=== PATIENT | male | born 1945 | race Caucasian/White ===

== ENCOUNTER 2016-08-24 08:10 | Emergency (ER) | payer BC, OTHER ==
[~2016-08-24] VITALS: Ht 182.9 cm; Wt 98.4 kg
[~2016-08-24 08:10] MED LIST: ASPCH81X PO; ASPI400T11 PO; ATOR-24 PO; CHOL200027 PO; DOCU-94 PO; LEVO200T PO; MULT-506 PO; OMEGCAP2 PO; OMEP20CA9 PO; SUMA50TA15 PO; TRAM-10 PO
[2016-08-24 08:14] VITALS: TEMP 36.6; Ht 182.9 cm; Wt 98.4 kg
[2016-08-24] MEDS ORDERED: SODIUM CHLORIDE 0.9% 1000ML 1,000 ML IV STA (08:21)
[2016-08-24] MEDS ORDERED: SODIUM CHLORIDE 0.9% 1000ML 250 ML IV STA (08:21)
[2016-08-24] MEDS ORDERED: MoRPHine SULFATE 4 MG/ML 1 ML CARP\\VIAL IV STA ×2 (08:21→09:18)
[2016-08-24] MEDS ORDERED: ONDANSETRON INJ 2 MG/ML 2 ML VIAL IV STA (08:21)
--- NOTE | 2016-08-24 08:32 | EMERGENCY ROOM VISIT NOTE ---
History Report prepared by Gomez: Ania Garrett Under the Supervision of: Dr. Osman Kendall M.D. First contact with patient: 08:18 Chief Complaint: KIDNEY STONE Stated Complaint: KIDNEY STONE, LOWER LEFT BACK PAIN History of Present Illness The patient is a 71 year old male who presents to the Emergency Room with complaints of worsening left lower back pain that began about 8 days ago. He saw Dr. Samuels a week ago and mentioned his pain, but the patient thought it could be related to a muscular pain from exercising. His pain did not seem to improve , and in fact worsened, so he became suspicious of a kidney stone. The pain also moved from his left mid back to his left lower back. Yesterday, the pain worsened significantly. It is worse with movement. He has some improvement with certain position changes. He reports a day or 2 of hematuria in the past few weeks which cleared on its own. The patient has a history of a kidney stone 5-6 years ago. His current pain feels similar to the previous kidney stone. The patient has chronic back problems and received an injection by Dr. López this past April. His current pain does not feel similar to previous back issues. Denies shortness of breath, pain with breathing, abdominal pain, lower extremity numbness/weakness, or other complaints. He is not on a blood thinner. The patient does not have a history of an aneurysm. His father had an aortic aneurysm. Source of History: patient, spouse/significant other Onset: 8 days ago Position: back (left lower) Timing: worsening Modifying Factors (Worsening): movement Modifying Factors (Relieving): other (positional) Associated Symptoms: No SOB, No abdominal pain, No numbness, No weakness Review of Systems See HPI for pertinent positives & negatives. A total of 10 systems reviewed and were otherwise negative. Past Medical & Surgical Medical Problems: (1) Kidney stone Old medical records were reviewed. Nurse's notes were reviewed and I agree with. Family History FH: aortic aneurysm Social History Smoking Status: Never Smoker Drug Use: none Marital Status: Housing Status: lives with significant other Current/Historical Medications Scheduled Atorvastatin (Lipitor), 40 MG PO QPM Cholecalciferol (Vitamin D-3), 1 TAB PO QAM Docusate Sodium (Colace), 1 CAP PO HS Levothyroxine Sodium (Synthroid), 200 MCG PO QAM Multivitamin (Multivitamin), 1 TAB PO QAM [place]-3 Fatty Acids (Fish Oil), 1,000 MG PO DAILY AT LUNCH Scheduled PRN Aspirin-Caffeine (Anacin 400-32 mg), 1 TAB PO QAM PRN for Pain Omeprazole (Prilosec), 20 MG PO HS PRN for ACID REFLUX Sumatriptan Succinate (Imitrex), 50 MG PO PRN PRN for Migraine Tramadol (Ultram), 50 MG PO Q8H PRN for Headache Allergies Coded Allergies: No Known Allergies (Verified , 05/16/16) Physical Exam Vital Signs Date Time Temp Pulse Resp B/P Pulse Ox O2 Delivery O2 Flow Rate FiO2 08/24/16 12:12 66 18 162/86 97 Room Air 08/24/16 10:28 67 18 178/97 95 Room Air 08/24/16 09:17 57 18 185/95 97 Room Air 08/24/16 08:14 36.6 74 18 176/77 94 Room Air Physical Exam General: Mildly uncomfortable appearing older male complaining of left flank pain. Well developed well nourished in no acute distress, breathing comfortably on room air. Normal speech HEENT: Normal cephalic atraumatic. Pupils are equal round and reactive to light. Extraocular movements are intact. Oropharynx is pink with moist mucous membranes. No swelling of the mouth lips or tongue. Neck: Supple with a midline trachea. No meningeal signs or stiffness, no JVD or bruits. No Stridor. Chest: Clear to auscultation bilaterally. No wheezes or rhonchi. No increased work of breathing. Heart: regular rate and rhythm. Abdomen: Soft nontender, nondistended without rebound guarding or rigidity. Extremities: No cyanosis clubbing or edema. No calf tenderness or assymetry Spine/Back. Non tender to palpation. No CVA tenderness Skin: Good turgor without rashes. Neurologic exam: Cranial nerves two through 12 are intact. Motor and sensation are intact and symmetrical throughout. Medical Decision & Procedures ER Provider Diagnostic Interpretation: Radiology results as stated below per my review and radiologist interpretation: LUMBAR SPINE CT CT DOSE: HISTORY: Pain. Neuropathy. eval for spinal disease TECHNIQUE: Multiaxial CT images of the lumbar spine were performed and reformatted in the sagittal and coronal plane without the use of contrast. COMPARISON: None. FINDINGS: No fractures. No subluxation. Paraspinal soft tissues are unremarkable. Mild degenerative vertebral this changes throughout. No evidence for major component of spinal stenosis. Minimal degenerative changes of posterior facets. IMPRESSION: Minimal to mild degenerative change. No acute process. Electronically signed by: Parvez Marks M.D. 08/24/2016 9:35 AM Dictated Date/Time: 08/24/2016 9:[address] SCAN OF THE ABDOMEN AND PELVIS WITHOUT IV CONTRAST CLINICAL HISTORY: Left flank pain. COMPARISON STUDY: Abdominal CT dated 02/18/2008. TECHNIQUE: CT scan of the abdomen and pelvis is performed from the lung bases to the proximal femora. Images are reviewed in the axial, sagittal, and coronal planes. IV contrast was not administered for this examination as per the referring clinician. Automated dose control exposure was utilized. CT DOSE: 969.27 mGycm FINDINGS: Lung bases: The patient is status post midline sternotomy. The heart is normal in size and without pericardial effusion. There is a small fat-containing Bochdalek hernia at the right lung base. The lung bases are clear. There is a small hiatal hernia. Liver: The unenhanced liver is normal in size, contour, and attenuation. There is no intrahepatic biliary ductal dilatation. Gallbladder: There are numerous calcified gallstones. There is no CT evidence of acute cholecystitis. Spleen: Normal in size and attenuation. Pancreas: The pancreatic head and neck are normal in appearance. The pancreatic body and tail are not visualized. Adrenal glands: Unremarkable. Kidneys: The unenhanced kidneys demonstrate cortical atrophy and are without hydronephrosis. There are no renal calculi identified. There is no evidence of contour deforming renal mass lesion. A 3 cm cyst is noted in the lower pole of the right kidney. Additional subcentimeter cortical hypodensities also likely represent cysts but are too small for definitive characterization. Abdominal vasculature: There is moderate to advanced atherosclerotic calcification and ectasia of the abdominal aorta. Bowel: The small bowel and colon are normal in course and caliber. There is mild to moderate colonic diverticulosis without CT evidence of acute diverticulitis. Moderate fecal retention is observed. The appendix is well-visualized and normal. Peritoneum: There is no intraperitoneal free air or abdominal ascites. There is a small fat-containing umbilical hernia. Lymphadenopathy: None. Pelvic viscera: The a large bladder calculus measures at least 2.2 cm. The bladder is otherwise normal as imaged. The prostate gland is diminutive and contains coarse calcifications. Skeletal structures: The skeletal structures are osteopenic. There is mild lumbar sacral spondylosis. No lytic or blastic lesions are seen. IMPRESSION: 1. There are no acute infectious or inflammatory findings in the abdomen or pelvis. 2. Moderate constipation. 3. There is a large bladder calculus. 4. Cholelithiasis without CT evidence of acute cholecystitis. 5. Mild to moderate colonic diverticulosis without CT evidence of acute epiglottis. 6. The pancreatic head and neck are normal in appearance. The pancreatic body and tail are not identified. This could be on a postoperative or congenital basis. Clinical correlation will be required. 7. Additional changes as above. Electronically signed by: Henrry Parrish M.D. 08/24/2016 9:33 AM Dictated Date/Time: 08/24/2016 9:20 AM Laboratory Results 08/24/16 08:45 Red Blood Count 5.45, Mean Corpuscular Volume 93.2, Mean Corpuscular Hemoglobin 32.8, Mean Corpuscular Hemoglobin Concent 35.2, Neutrophils (%) (Auto) 54.7, Lymphocytes (%) (Auto) 33.5, Monocytes (%) (Auto) 8.1, Eosinophils (%) (Auto) 3.1, Basophils (%) (Auto) 0.4, Neutrophils # (Auto) 3.03, Lymphocytes # (Auto) 1.85, Monocytes # (Auto) 0.45, Eosinophils # (Auto) 0.17, Basophils # (Auto) 0.02 08/24/16 08:45 Test 08/24/16 08:45 White Blood Count 5.53 K/uL (4.8-10.8) Red Blood Count 5.45 M/uL (4.7-6.1) Hemoglobin 17.9 g/dL (14.0-18.0) Hematocrit 50.8 % (42-52) Mean Corpuscular Volume 93.2 fL (80-100) Mean Corpuscular Hemoglobin 32.8 pg (25-34) Mean Corpuscular Hemoglobin Concent 35.2 g/dl (32-36) Platelet Count 111 K/uL (130-400) Neutrophils (%) (Auto) 54.7 % Lymphocytes (%) (Auto) 33.5 % Monocytes (%) (Auto) 8.1 % Eosinophils (%) (Auto) 3.1 % Basophils (%) (Auto) 0.4 % Neutrophils # (Auto) 3.03 K/uL (1.4-6.5) Lymphocytes # (Auto) 1.85 K/uL (1.2-3.4) Monocytes # (Auto) 0.45 K/uL (0.11-0.59) Eosinophils # (Auto) 0.17 K/uL (0-0.5) Basophils # (Auto) 0.02 K/uL (0-0.2) RDW Standard Deviation 46.2 fL (36.4-46.3) RDW Coefficient of Variation 13.6 % (11.5-14.5) Immature Granulocyte % (Auto) 0.2 % Immature Granulocyte # (Auto) 0.01 K/uL (0.00-0.02) Platelet Estimate DECREASED Large Platelets 1+ Urine Color YELLOW Urine Appearance CLEAR (CLEAR) Urine pH 5.5 (4.5-7.5) Urine Specific [place] 1.016 (1.000-1.030) Urine Protein NEG (NEG) Urine Glucose (UA) NEG (NEG) Urine Ketones NEG (NEG) Urine Occult Blood NEG (NEG) Urine Nitrite NEG (NEG) Urine Bilirubin NEG (NEG) Urine Urobilinogen NEG (NEG) Urine Leukocyte Esterase NEG (NEG) Anion Gap 9.0 mmol/L (3-11) Est Creatinine Clear Calc Drug Dose 68.6 ml/min Estimated GFR () 70.1 Estimated GFR (Non- 60.5 BUN/Creatinine Ratio 14.6 (10-20) Calcium Level 9.2 mg/dl (8.5-10.1) Total Bilirubin 0.6 mg/dl (0.2-1) Direct Bilirubin 0.1 mg/dl (0-0.2) Aspartate Amino Transf (AST/SGOT) 32 U/L (15-37) Alanine Aminotransferase (ALT/SGPT) 88 U/L (12-78) Alkaline Phosphatase 84 U/L (45-117) Total Protein 7.1 gm/dl (6.4-8.2) Albumin 3.9 gm/dl (3.4-5.0) Lipase 651 U/L (73-393) Laboratory studies as stated above per my review. Medications Administered Medications (Trade) Dose Ordered Sig/Gale Route Start Time Stop Time Status Last Admin Dose Admin Sodium Chloride 250 ml @ 999 mls/hr Q16M STAT IV 08/24/16 08:21 08/24/16 08:36 DC 08/24/16 08:21 999 MLS/HR Sodium Chloride (Nss 1000ml) 1,000 ml @ 100 mls/hr Q10H STAT IV 08/24/16 08:21 08/24/16 12:36 DC 08/24/16 08:21 100 MLS/HR Morphine Sulfate (MoRPHine SULFATE INJ) 4 mg NOW STAT IV 08/24/16 08:21 08/24/16 08:30 DC 08/24/16 08:47 4 MG Ondansetron HCl (Zofran Inj) 4 mg NOW STAT IV 08/24/16 08:21 08/24/16 08:30 DC 08/24/16 08:46 4 MG Morphine Sulfate (MoRPHine SULFATE INJ) 4 mg NOW STAT IV 08/24/16 09:18 08/24/16 09:19 DC 08/24/16 09:31 4 MG Ketorolac Tromethamine (Toradol Inj) 30 mg NOW STAT IV 08/24/16 10:12 08/24/16 10:13 DC 08/24/16 10:27 30 MG Miscellaneous (Soap Suds Enema) 1 ea ONE STAT VA 08/24/16 11:16 08/24/16 11:17 DC 08/24/16 11:16 1 EA ED Course 0820: The patient was evaluated in room B9, and a complete history and physical examination were performed. 0821: Ordered Zofran Inj 4 mg IV, Morphine Sulfate 4 mg IV, NSS 1000 ml @ 100 mls/hr IV, NSS 250 ml @ 999 mls/hr IV. 0918: I reassessed the patient. He was having more pain. Ordered Morphine Sulfate 4 mg IV. 1012: I reassessed the patient. He still has some lower left flank pain but appears comfortable. Ordered Toradol Inj 30 mg IV. 1116: Ordered Soaps Suds Enema 1 ea VA. 1121: I reassessed the patient. He was having more pain. He has been constipated recently so I will order an enema. 1205: Upon reevaluation, the patient is feeling much better. I discussed the results and treatment plan with the patient. He verbalized agreement of the treatment plan. The patient was discharged home. Medical Decision Differentials include kidney stones, infection, AAA, musculoskeletal, electrolyte or metabolic abnormality. This patient comes in as described above. He was placed in room B9. He is here for treatment and evaluation of left-sided back pain. He feels like it's somewhat a kidney stone is going off about a week and it is worse with movement. He has no neurologic deficits and has nothing to suggest cauda equina syndrome is known numbness or weakness. He has been constipated which is unusual for him. He's had no fever or chills. IV access established blood work was obtained. CAT scan of his abdomen shows constipation but no other acute findings to explain symptoms he is no bowel obstruction or obstructive uropathy. He was given IV morphine and IV Zofran initially with a small moderately she is given additional IV morphine and then IV Toradol. On the CAT scan, it showed constipation and I suggested that we do a soapsuds enema. The soapsuds enema was done he was able to adequately do this but did not pass a lot material however felt significantly better and wants to go home it may be that the stool is higher up. I recommend he use MiraLAX and return if: Increasing pain, worsening symptoms, fever or chills, any new problems or concerns. Impression Primary Impression: Left flank pain Additional Impression: Constipation Scribe Attestation The scribe's documentation has been prepared under my direction and personally reviewed by me in its entirety. I confirm that the note above accurately reflects all work, treatment, procedures, and medical decision making performed by me. Departure Information Dispostion Home / Self-Care Referrals Natan Samuels M.D. (PCP) Patient Instructions My [facility] Additional Instructions Rest. Drink plenty of fluids. Use MiraLAX if needed, [id number]. Return if: Worsening of symptoms, fever or chills, numbness or weakness, increased pain or problems, any new problems or concerns Follow-up with your doctor Saturday for recheck. Return here over the weekend if symptoms worsen Problem Qualifiers
[2016-08-24 08:53] LABS: MEAN CORPUSCULAR HGB CONC 35.2 g/dl (32-36)
[2016-08-24 08:58] LABS: URINE APPEARANCE CLEAR (CLEAR); URINE BILIRUBIN NEG (NEG); URINE COLOR YELLOW; URINE NITRITE NEG (NEG); URINE PH 5.5 (4.5-7.5); URINE SPECIFIC GRAVITY 1.016 (1.000-1.030); UROBILINOGEN NEG (NEG)
[2016-08-24 08:59] LABS: MANUAL MICROSCOPIC REQUIRED? NO; REVIEW REQ? NO
[2016-08-24 09:08] LABS: HEMATOCRIT 50.8 % (42-52); MEAN CELL VOLUME 93.2 fL (80-100); MEAN CORPUSCULAR HEMOGLOBIN 32.8 pg (25-34); RED BLOOD COUNT 5.45 M/uL (4.7-6.1); WHITE BLOOD COUNT 5.53 K/uL (4.8-10.8)
[2016-08-24 09:10] LABS: BUN/CREATININE RATIO 14.6 (10-20); CALCIUM 9.2 mg/dl (8.5-10.1); CREATININE 1.2 mg/dl (0.60-1.40); POTASSIUM 4.3 mmol/L (3.5-5.1)
[2016-08-24 09:30] LABS: BASO % 0.4 %; BASO ABS # 0.02 K/uL (0-0.2); COMPLETE YES; EOS % 3.1 %; IG% 0.2 %; LARGE PLATELETS 1+; LYMPH % 33.5 %; LYMPH ABS # 1.85 K/uL (1.2-3.4); MONO % 8.1 %; NEUT % 54.7 %; PLATELET COUNT 111 K/uL (130-400); PLT ESTIMATE DECREASED
--- NOTE | 2016-08-24 09:35 | DIAGNOSTIC IMAGING REPORT ---
CT SCAN OF THE ABDOMEN AND PELVIS WITHOUT IV CONTRAST CLINICAL HISTORY: Left flank pain. COMPARISON STUDY: Abdominal CT dated 02/18/2008. TECHNIQUE: CT scan of the abdomen and pelvis is performed from the lung bases to the proximal femora. Images are reviewed in the axial, sagittal, and coronal planes. IV contrast was not administered for this examination as per the referring clinician. Automated dose control exposure was utilized. CT DOSE: 969.27 mGycm FINDINGS: Lung bases: The patient is status post midline sternotomy. The heart is normal in size and without pericardial effusion. There is a small fat-containing Bochdalek hernia at the right lung base. The lung bases are clear. There is a small hiatal hernia. Liver: The unenhanced liver is normal in size, contour, and attenuation. There is no intrahepatic biliary ductal dilatation. Gallbladder: There are numerous calcified gallstones. There is no CT evidence of acute cholecystitis. Spleen: Normal in size and attenuation. Pancreas: The pancreatic head and neck are normal in appearance. The pancreatic body and tail are not visualized. Adrenal glands: Unremarkable. Kidneys: The unenhanced kidneys demonstrate cortical atrophy and are without hydronephrosis. There are no renal calculi identified. There is no evidence of contour deforming renal mass lesion. A 3 cm cyst is noted in the lower pole of the right kidney. Additional subcentimeter cortical hypodensities also likely represent cysts but are too small for definitive characterization. Abdominal vasculature: There is moderate to advanced atherosclerotic calcification and ectasia of the abdominal aorta. Bowel: The small bowel and colon are normal in course and caliber. There is mild to moderate colonic diverticulosis without CT evidence of acute diverticulitis. Moderate fecal retention is observed. The appendix is well-visualized and normal. Peritoneum: There is no intraperitoneal free air or abdominal ascites. There is a small fat-containing umbilical hernia. Lymphadenopathy: None. Pelvic viscera: The a large bladder calculus measures at least 2.2 cm. The bladder is otherwise normal as imaged. The prostate gland is diminutive and contains coarse calcifications. Skeletal structures: The skeletal structures are osteopenic. There is mild lumbar sacral spondylosis. No lytic or blastic lesions are seen. IMPRESSION: 1. There are no acute infectious or inflammatory findings in the abdomen or pelvis. 2. Moderate constipation. 3. There is a large bladder calculus. 4. Cholelithiasis without CT evidence of acute cholecystitis. 5. Mild to moderate colonic diverticulosis without CT evidence of acute epiglottis. 6. The pancreatic head and neck are normal in appearance. The pancreatic body and tail are not identified. This could be on a postoperative or congenital basis. Clinical correlation will be required. 7. Additional changes as above. Electronically signed by: Henrry Parrish M.D. 08/24/2016 9:33 AM Dictated Date/Time: 08/24/2016 9:20 AM
--- NOTE | 2016-08-24 09:36 | DIAGNOSTIC IMAGING REPORT ---
LUMBAR SPINE CT CT DOSE: HISTORY: Pain. Neuropathy. eval for spinal disease TECHNIQUE: Multiaxial CT images of the lumbar spine were performed and reformatted in the sagittal and coronal plane without the use of contrast. COMPARISON: None. FINDINGS: No fractures. No subluxation. Paraspinal soft tissues are unremarkable. Mild degenerative vertebral this changes throughout. No evidence for major component of spinal stenosis. Minimal degenerative changes of posterior facets. IMPRESSION: Minimal to mild degenerative change. No acute process. Electronically signed by: Parvez Marks M.D. 08/24/2016 9:35 AM Dictated Date/Time: 08/24/2016 9:33 AM
[2016-08-24] MEDS ORDERED: KETOROLAC TROMETHAMINE 30 MG/ML VIAL IV STA (10:12)
[2016-08-24] MEDS ORDERED: SOAP SUDS ENEMA PR STA (11:16)
[2016-08-24 12:12] VITALS: BP 162/86; PULSE 66; O2SAT 97
[2016-09-06] MEDS ORDERED: OMEG10007 PO (14:00)
[2016-09-06] MEDS ORDERED: TAMS0.4C38 PO (14:00)
[2016-09-06] MEDS ORDERED: ASPI325T39 PO (14:00)
[2016-09-06] MEDS ORDERED: NTRGSL/4 UT (14:00)
[2016-09-06] MEDS ORDERED: FINA5TAB PO (14:00)
[2016-09-17] MEDS ORDERED: OXYC-57 PO (11:30)
== END 2016-08-24 12:10 | disposition home or self-care (01) ==
LOC: C.EDB 08:13
DX: R10.30 Lower abdominal pain, unspecified (principal); K59.00 Constipation, unspecified; Z87.442 Personal history of urinary calculi; Z79.899 Other long term (current) drug therapy

== ENCOUNTER → 2016-11-21 | Day surgery (SDC) | payer BC ==
--- NOTE | 2016-09-06 14:37 | PAT Medication Instructions ---
Service Date Sep 06, 2016. Current Home Medication List Aspirin (Aspirin Ec), 325 MG PO QPM Aspirin-Caffeine (Anacin 400-32 mg), 1 TAB PO QAM PRN for Pain Atorvastatin (Lipitor), 40 MG PO QPM Cholecalciferol (Vitamin D-3), 1 TAB PO QAM Docusate Sodium (Colace), 1 CAP PO HS Finasteride (Proscar), 5 MG PO QPM Fish Oil ([place]-3), 1 CAP PO QAM Levothyroxine Sodium (Synthroid), 200 MCG PO QAM Multivitamin (Multivitamin), 1 TAB PO QAM Nitroglycerin (Nitrostat), 0.4 MG UT PRN Omeprazole (Prilosec), 20 MG PO HS PRN for ACID REFLUX Sumatriptan Succinate (Imitrex), 50 MG PO PRN PRN for Migraine Tamsulosin Hcl (Flomax), 0.4 MG PO QPM Tramadol (Ultram), 50 MG PO Q8H PRN for Headache Medication Instructions For Your Scheduled Surgery - Check with surgeon/tire balancer for instructions: Aspirin (Aspirin Ec), 325 MG PO QPM - Check with surgeon for instructions: Aspirin-Caffeine (Anacin 400-32 mg), 1 TAB PO QAM PRN for Pain - Hold the following medications starting 09/07/16: Fish Oil ([place]-3), 1 CAP PO QAM - Hold the following medications the morning of surgery: Sumatriptan Succinate (Imitrex), 50 MG PO PRN PRN for Migraine Multivitamin (Multivitamin), 1 TAB PO QAM Cholecalciferol (Vitamin D-3), 1 TAB PO QAM - Take the following medications the morning of surgery with a sip of water: Nitroglycerin (Nitrostat), 0.4 MG UT PRN (if needed) Levothyroxine Sodium (Synthroid), 200 MCG PO QAM Tramadol (Ultram), 50 MG PO Q8H PRN for Headache (okay to take up to 4 hours prior to surgery if needed) - Take the following medications as scheduled the night before surgery: Tamsulosin Hcl (Flomax), 0.4 MG PO QPM Sumatriptan Succinate (Imitrex), 50 MG PO PRN PRN for Migraine (if needed) Omeprazole (Prilosec), 20 MG PO HS PRN for ACID REFLUX (if needed) Nitroglycerin (Nitrostat), 0.4 MG UT PRN (if needed) Finasteride (Proscar), 5 MG PO QPM Docusate Sodium (Colace), 1 CAP PO HS Atorvastatin (Lipitor), 40 MG PO QPM Tramadol (Ultram), 50 MG PO Q8H PRN for Headache (if needed) If you have any questions please call us at [phone] (Keerthi Daniel PA-C) or [phone] or [phone]
[2016-11-06 09:47] VITALS: Ht 182.9 cm; Wt 100.0 kg
[~2016-11-21] VITALS: Ht 182.9 cm; Wt 100.0 kg
[~2016-11-21] MED LIST changes: -ASPCH81X PO; +ASPI325T39 PO; -ASPI400T11 PO; +FINA5TAB PO; +NTRGSL/4 UT; +OMEG10007 PO; -OMEGCAP2 PO; -OMEP20CA9 PO; +SODIUM CHLORIDE 0.9% 500ML 500 ML IV ONE; +TAMS0.4C38 PO
[2016-11-21 13:39] VITALS: TEMP 36.5
--- NOTE | 2016-11-21 14:04 | Endo History and Physical ---
History & Physical Date of Service: Nov 21, 2016. Chief Complaint: history of polyp Referring Physician: Dr. Natan Samuels History of Present Illness 71 yo CM who presents for colonoscopy secondary to history of colon polyps. Past Medical History Arthritis, Gastrointestinal Disorder, Reflux, CABG, Thyroid Disease, PR Past Surgical History Hx Cardiac Surgery: Yes (CABG-2 VESSELS, HEART CATH-NO STENTS) Hx Internal Defibrillator: No Hx Pacemaker: No Hx Abdominal Surgery: Yes (COLON RESECTION WITH COLOSTOMY/REVERSAL) Hx of Implantable Prosthesis: No Hx Post-Op Nausea and Vomiting: No Hx Cancer Surgery: No Hx Thoracic Surgery: No Hx Orthopedic: No Hx Urinary Tract Surgery: Yes (CYSTOLITHAPAXY) Family History None Social History Smoking Status: Former Smoker Hx Substance Use: No Hx Alcohol Use: Yes (OCCASIONAL ) Allergies Coded Allergies: NO KNOWN DRUG ALLERGIES (Verified Allergy, Unknown, NONE, 11/06/16) Shellfish (Verified Adverse Reaction, Unknown, NAUSEA AND VOMITING, ) Current Medications Reported Home Medications Medications Dose Route/Sig Max Daily Dose Days Date Category Proscar (Finasteride) 5 Mg Tab 5 Mg PO QPM 09/06/16 Reported Flomax (Tamsulosin Hcl) 0.4 Mg Cap 0.4 Mg PO QPM 09/06/16 Reported Nitrostat (Nitroglycerin) 0.4 Mg Tab 0.4 Mg UT PRN 09/06/16 Reported [place]-3 (Fish Oil) 1 Ea Cap 1 Cap PO QAM 09/06/16 Reported Aspirin Ec (Aspirin) 325 Mg Tab 325 Mg PO QPM 09/06/16 Reported Multivitamin (Multivitamins) Tab 1 Tab PO QAM 12/08/15 Reported Colace (Docusate Sodium) 100 Mg Cap 1 Cap PO HS 12/08/15 Reported Lipitor (Atorvastatin Calcium) 40 Mg Tab 40 Mg PO QPM 03/17/15 Reported Vitamin D-3 (Cholecalciferol) 2,000 Unit Tab 1 Tab PO QAM 03/17/15 Reported Imitrex (Sumatriptan Succinate) 50 Mg Tab 50 Mg PO PRN PRN 03/17/15 Reported Ultram (Tramadol HCl) 50 Mg Tab 50 Mg PO Q8H PRN 03/17/15 Reported Synthroid (Levothyroxine Sodium) 200 Mcg Tab 200 Mcg PO QAM 03/17/15 Reported Vital Signs Weight (Kilograms): 100 Height (Feet): 6 Height (Inches): 0 Date Time Temp Pulse Resp B/P (MAP) Pulse Ox O2 Delivery O2 Flow Rate FiO2 11/21/16 13:39 36.5 64 20 138/85 (102) 98 Room Air Physical Exam General Appearance: WD/WN, no apparent distress Respiratory/Chest: Auscultation: breath sounds normal Cardiovascular: Heart Auscultation: RRR Abdomen: Bowel Sounds: normal Inspection & Palpation: soft, non-distended, no tenderness, guarding & rebound Assessment and Plan Assessment: 71 yo CM who presents for colonoscopy secondary to history of colon polyps. Plan: Proceed to colonoscopy.
--- NOTE | 2016-11-21 14:56 | GI REPORT ---
Procedure Date: 11/21/2016 2:18 PM Procedure: Colonoscopy Indications: High risk colon cancer surveillance: Personal history of colonic polyps Medicines: Monitored Anesthesia Care Complications: No immediate complications. Estimated Blood Loss: Estimated blood loss: none. Procedure: Pre-Anesthesia Assessment: - Prior to the procedure, a History and Physical was performed, and patient medications and allergies were reviewed. The patient's tolerance of previous anesthesia was also reviewed. The risks and benefits of the procedure and the sedation options and risks were discussed with the patient. All questions were answered, and informed consent was obtained. Prior Anticoagulants: The patient has taken aspirin, last dose was 2 days prior to procedure. ASA Grade Assessment: III - A patient with severe systemic disease. After reviewing the risks and benefits, the patient was deemed in satisfactory condition to undergo the procedure. After I obtained informed consent, the scope was passed under direct vision. Throughout the procedure, the patient's blood pressure, pulse, and oxygen saturations were monitored continuously. The Scope was introduced through the anus and advanced to the terminal ileum. The colonoscopy was performed without difficulty. The patient tolerated the procedure well. The quality of the bowel preparation was good. The terminal ileum, ileocecal valve, appendiceal orifice, and rectum were photographed. Findings: A 7 mm polyp was found in the ascending colon. The polyp was sessile. The polyp was removed with a hot snare. Resection and retrieval were complete. Multiple small-mouthed diverticula were found in the sigmoid colon. Non-bleeding internal hemorrhoids were found during retroflexion. The hemorrhoids were small. Impression: - One 7 mm polyp in the ascending colon, removed with a hot snare. Resected and retrieved. - Diverticulosis in the sigmoid colon. - Non-bleeding internal hemorrhoids. Recommendation: - Resume previous diet. - Continue present medications. - Repeat colonoscopy for surveillance based on pathology results. - Return to primary care physician as previously scheduled. Boni Sanchez, DO 11/21/2016 2:55:14 PM This report has been signed electronically. Note Initiated On: 11/21/2016 2:18 PM I attest to the content of the Intraoperative Record and orders documented therein, exceptions below
--- NOTE | 2016-11-21 14:56 | Discharge Instructions ---
Endoscopy Patient Instructions Date / Procedure(s) Performed Nov 21, 2016. Colonoscopy Allergy Information Coded Allergies: NO KNOWN DRUG ALLERGIES (Verified Allergy, Unknown, NONE, 11/06/16) Shellfish (Verified Adverse Reaction, Unknown, NAUSEA AND VOMITING, ) Discharge Date / Findings Nov 21, 2016. Colon polyp Diverticulosis Internal hemorrhoids Medication Instructions Stopped Medication(s): last dose ASA Saturday OK to resume all medications today as prescribed Reported Home Medications Medications Dose Route/Sig Max Daily Dose Days Date Category Proscar (Finasteride) 5 Mg Tab 5 Mg PO QPM 09/06/16 Reported Flomax (Tamsulosin Hcl) 0.4 Mg Cap 0.4 Mg PO QPM 09/06/16 Reported Nitrostat (Nitroglycerin) 0.4 Mg Tab 0.4 Mg UT PRN 09/06/16 Reported [place]-3 (Fish Oil) 1 Ea Cap 1 Cap PO QAM 09/06/16 Reported Aspirin Ec (Aspirin) 325 Mg Tab 325 Mg PO QPM 09/06/16 Reported Multivitamin (Multivitamins) Tab 1 Tab PO QAM 12/08/15 Reported Colace (Docusate Sodium) 100 Mg Cap 1 Cap PO HS 12/08/15 Reported Lipitor (Atorvastatin Calcium) 40 Mg Tab 40 Mg PO QPM 03/17/15 Reported Vitamin D-3 (Cholecalciferol) 2,000 Unit Tab 1 Tab PO QAM 03/17/15 Reported Imitrex (Sumatriptan Succinate) 50 Mg Tab 50 Mg PO PRN PRN 03/17/15 Reported Ultram (Tramadol HCl) 50 Mg Tab 50 Mg PO Q8H PRN 03/17/15 Reported Synthroid (Levothyroxine Sodium) 200 Mcg Tab 200 Mcg PO QAM 03/17/15 Reported Provider Instructions Activity Restrictions - No exercising or heavy lifting for 24 hours. - Do not drink alcohol the day of the procedure. - Do not drive a car or operate machinery until the day after the procedure. - Do not make any important decisions or sign important papers in 24 hours after the procedure. Following Day: - Return to full activity which may include returning to work/school. Diet Start your diet with liquids and light foods (jello, soup, juice, toast). Then eat your usual diet if not nauseated. Treatment For Common After Affects For mild abdominal pain, bloating, or excessive gas: - Rest - Eat lightly - Lie on right side Follow-Up Information Follow-up with Dr. Natan Samuels as scheduled Anesthesia Information What You Should Know You have had a procedure that required some medicine to reduce anxiety and discomfort. This treatment is called moderate sedation. After receiving the treatment, you may be sleepy, but you will be able to breathe on your own. The effects of the treatment may last for several hours. Follow these instructions along with Activity/Diet recommendations noted above: * Do NOT do anything where dizziness or clumsiness would be dangerous. * Rest quietly at home today, then you can be up and about tomorrow. * Have a responsible person stay with you the rest of today. * You may have had an I.V. today. If so, you may take the dressing off later today. Recommendations Call your doctor if: * Trouble breathing * Continuous vomiting for more than 24 hours * Temperature above 101 degrees * Severe abdominal pain or bloating * Pain not relieved by pain medicine ordered * There is increased drainage or redness from any incision * A large amount of rectal bleeding greater than 2-3 tablespoons. (If you had a polyp/s removed or have hemorrhoids, a small amount of blood - from the rectum is to be expected.) * You have any unanswered questions or concerns. IN THE EVENT OF A SERIOUS EMERGENCY, GO TO THE NEAREST EMERGENCY ROOM Your discharge instructions were prepared by provider Boni Sanchez. Patient Instructions Signature Page Edison Su Patient (or Guardian) Signature/Date: I have read and understand the instructions given to me by my caregivers. Caregiver/RN/Doctor Signature/Date: The above-named patient and/or guardian has received patient instructions on this date. + Original Patient Signature Page (only) stays with chart. Please make copy for patient.
--- NOTE | 2016-11-21 15:25 | Anesthesiology Progress Note ---
Anesthesia Post Op Note Date & Time Nov 21, 2016 at 15:25 Vital Signs Pain Intensity: 0 Vital Signs Past 12 Hours Date Time Temp Pulse Resp B/P (MAP) Pulse Ox O2 Delivery O2 Flow Rate FiO2 11/21/16 15:14 78 20 134/77 (96) 99 Room Air 11/21/16 14:57 81 20 114/72 (86) 97 Room Air 11/21/16 13:39 36.5 64 20 138/85 (102) 98 Room Air Notes Mental Status: alert / awake / arousable, participated in evaluation Pt Amnestic to Procedure: Yes Nausea / Vomiting: adequately controlled Pain: adequately controlled Airway Patency, RR, SpO2: stable & adequate BP & HR: stable & adequate Hydration State: stable & adequate Anesthetic Complications: no major complications apparent
[2016-11-21 15:29] VITALS: BP 144/86; PULSE 64; O2SAT 99
== END | disposition home or self-care (01) ==
LOC: C.GI 12:51
PROVIDERS: ATTEND Internal Medicine
DX: Z12.11 Encounter for screening for malignant neoplasm of colon (principal); D12.2 Benign neoplasm of ascending colon; K57.30 Diverticulosis of large intestine without perforation or abscess without bleeding; K64.8 Other hemorrhoids; Z86.010 Personal history of colon polyps; I25.2 Old myocardial infarction; I25.10 Atherosclerotic heart disease of native coronary artery without angina pectoris; K21.9 Gastro-esophageal reflux disease without esophagitis; E07.9 Disorder of thyroid, unspecified; Z95.1 Presence of aortocoronary bypass graft; Z87.891 Personal history of nicotine dependence; Z79.82 Long term (current) use of aspirin; Z79.899 Other long term (current) drug therapy

== ENCOUNTER → 2016-12-06 | Day surgery (SDC) | payer BC ==
[2016-11-06 09:54] VITALS: Ht 182.9 cm; Wt 100.0 kg
[~2016-12-06] VITALS: Ht 182.9 cm; Wt 100.0 kg
[~2016-12-06] MED LIST changes: +BUPIVACAINE 0.25% 2.5MG/ML PF 10 ML VIAL ONE; +LIDOCAINE HCL 1% MPF 5 ML VIAL ONE; -SODIUM CHLORIDE 0.9% 500ML 500 ML IV ONE
--- NOTE | 2016-12-06 13:47 | History & Physical Bridge - [place] ---
H&P Re-Evaluation Bridge Note: I have examined the patient, reviewed the History & Physical and in the interval since the performance of the History & Physical I have noted the following changes of clinical significance: No changes noted
[2016-12-06 14:10] VITALS: TEMP 37.2
--- NOTE | 2016-12-06 14:18 | Discharge Instructions ---
Discharge Instructions Date of Service Dec 06, 2016. Visit Reason for Visit: Low Back Pain Discharge Discharge Diagnosis / Problem: low back pain Discharge Goals Goal(s): Decrease discomfort, Improve function Activity Recommendations Activity Limitations: resume your previous activity Anesthesia . Post Anesthesia Instructions: If you have had General Anesthesia or IV Sedation: * Do not drive today. * Resume driving when surgeon permits. * Do not make important decisions or sign legal documents today. * Call surgeon for: 1. Temperature elevations greater than 101 degrees F. 2. Uncontrollable pain. 3. Excessive bleeding. 4. Persistent nausea and vomiting. 5. Medication intolerance (nausea, vomiting or rash). * For nausea and vomiting use only clear liquids such as: tea, soda, bouillon until nausea subsides, then gradually increase diet as tolerated. * If you have any concerns or questions, call your surgeon's office. If physician is unavailable and it is an emergency, call 911 or go to the nearest emergency room. . Diet Recommendations Recommended Home Diet: resume previous diet Procedures Procedures Performed: Right L4-5, L5-S1 Medial Branch Block Pending Studies Studies pending at discharge: no Medical Emergencies . Who to Call and When: Medical Emergencies: If at any time you feel your situation is an emergency, please call 911 immediately. . Non-Emergent Contact Non-Emergency issues call your: Specialist . . "Provider Documentation" section prepared by Quintin López. .
--- NOTE | 2016-12-06 14:21 | [facility] Operative Report ---
Operative Report Date of Service Dec 06, 2016. Operative Report DATE OF OPERATION: 12/06/2016 PREOPERATIVE DIAGNOSES: Chronic low back pain, right L4-L5 and L5-S1 facet arthropathy. POSTOPERATIVE DIAGNOSIS: Same. PROCEDURE: Right L4-L5 and L5-S1 medial branch blocks. INDICATIONS: The patient is a 71-year-old white male who responded favorably to a sacroiliac joint block. However, he reported when that pain was relieved, he had pain a little bit higher up in the mid to lower lumbar area of the back, it was localizing to 4-5 and 5-1. Decision was meant that this is also a pain generator at these facet levels on the right side and he presents today for a medial branch block to confirm that this is indeed generating the pain for the patient. PHYSICAL EXAMINATION: Pleasant male seated comfortably, in no apparent distress. He has discomfort with extension, and extension/rotation. He has normal lower extremity strength and sensation. Negative seated straight leg raises. CONSENT: Verbal and written consent was obtained from the patient. Risks and benefits were reviewed. Risks include but are not limited to epidural abscess and allergic reaction and wishes to proceed. PROCEDURE: The patient was taken back to the special procedures room of the [facility] where he was maintained in a prone position. Backside was cleansed with Betadine x3 and a dry sterile dressing was applied. Fluoroscope was used to identify the L4, L5 transverse process junctions and sacral ala and the overlying skin was anesthetized with 2.5 mL of lidocaine 1% with a 25 gauge 1.5-inch needle. A 25 gauge 3.5 inch spinal needle was then directed targeting each transverse process junction, first at L4 then at L5, then the sacral ala He then underwent injection after negative aspiration of 1 mL of bupivacaine 0.25%. At each level, injection was well tolerated. DISPOSITION: 1. The patient is taken out into the discharge recovery area where he will be discharged home once discharge criteria have been met. 2. Follow up in the [facility] office in 2-4 weeks. I attest to the content of the Intraoperative Record and any orders documented therein. Any exceptions are noted below.
[2016-12-06 14:24] VITALS: BP 133/81; PULSE 60; O2SAT 96
== END | disposition home or self-care (01) ==
LOC: X.SURG 13:01
PROVIDERS: ATTEND Physical Medicine & Rehabilitation
DX: M46.97 Unspecified inflammatory spondylopathy, lumbosacral region (principal); Z79.82 Long term (current) use of aspirin

== ENCOUNTER → 2017-02-13 | Day surgery (SDC) | payer BC ==
[2017-01-21 12:09] VITALS: Ht 182.9 cm; Wt 100.0 kg
[~2017-02-13] VITALS: Ht 182.9 cm; Wt 100.0 kg
[~2017-02-13] MED LIST changes: +LIDOCAINE HCL 1% 20 ML VIAL ONE; -LIDOCAINE HCL 1% MPF 5 ML VIAL ONE
[2017-02-13 14:25] VITALS: TEMP 37
[2017-02-13 14:34] VITALS: BP 136/89; PULSE 60; O2SAT 97
--- NOTE | 2017-02-13 14:34 | Discharge Instructions ---
Discharge Instructions Date of Service Feb 13, 2017. Visit Reason for Visit: Low Back Pain Discharge Discharge Diagnosis / Problem: low back pain Discharge Goals Goal(s): Decrease discomfort, Improve function Activity Recommendations Activity Limitations: resume your previous activity Anesthesia . Post Anesthesia Instructions: If you have had General Anesthesia or IV Sedation: * Do not drive today. * Resume driving when surgeon permits. * Do not make important decisions or sign legal documents today. * Call surgeon for: 1. Temperature elevations greater than 101 degrees F. 2. Uncontrollable pain. 3. Excessive bleeding. 4. Persistent nausea and vomiting. 5. Medication intolerance (nausea, vomiting or rash). * For nausea and vomiting use only clear liquids such as: tea, soda, bouillon until nausea subsides, then gradually increase diet as tolerated. * If you have any concerns or questions, call your surgeon's office. If physician is unavailable and it is an emergency, call 911 or go to the nearest emergency room. . Diet Recommendations Recommended Home Diet: resume previous diet Procedures Procedures Performed: Right L4-5, L5-S1 Radio Frequency Denervation Pending Studies Studies pending at discharge: no Medical Emergencies . Who to Call and When: Medical Emergencies: If at any time you feel your situation is an emergency, please call 911 immediately. . Non-Emergent Contact Non-Emergency issues call your: Specialist . . "Provider Documentation" section prepared by Quintin López. .
--- NOTE | 2017-02-14 00:27 | OPERATIVE REPORT ---
DATE OF OPERATION: 02/13/2017 PREOPERATIVE DIAGNOSIS: Chronic low back pain, lumbar facet arthropathy, L4-L5, L5-S1 on the right. POSTOPERATIVE DIAGNOSIS: Same. PROCEDURE: Right L4-5, L5-S1 radiofrequency denervation. INDICATIONS: The patient is a 71-year-old white male, who underwent medial branch blocks with relief for a positive diagnostic test. He presents today for radiofrequency denervation at the same levels to provide him with relief. PHYSICAL EXAMINATION: Pleasant male seated comfortably. He has some point tenderness to palpation at the L5-S1 and L4-L5 facet areas, which is worse with extension, extension rotation, relieved with flexion towards the left side. He has normal motor and sensory examination and negative seated straight leg raises. CONSENT: Verbal and written consent was obtained from the patient. Risks and benefits were reviewed. Risks include, but are not limited to abscess and allergic reaction. The patient wishes to proceed. PROCEDURE: The patient was taken back in the special procedures room of the [facility], where he was maintained in a prone position. Backside was cleansed with Betadine x3 and a dry sterile dressing was applied. Fluoroscope was used to identify the L5 transverse process on the right side, the right L4 transverse process and the right sacral ala. Overlying skin was anesthetized with 1.5 mL of lidocaine 1% with a 25 gauge 1.5-inch needle at each site. He then underwent placement of a 22 gauge 10 cm [place] needle at each site contacting bone. He then underwent sensory stimulation at each site, first at L4, then L5 and then the sacral ala and it reproduced a familiar back pain, at a sensitivity of 0.1 volts at L4, 0.1 volt at L5 and 0.2 volts at the sacral ala. Motor stimulation did not provoke any radiating pain down the leg. There was robust paraspinal spasms at L4, slightly less at L5 and minimal at the sacral ala. He then underwent anesthetization of 1 mL of lidocaine at each site. This was then followed by denervation 80 degrees 100 seconds x2 at each site and then followed up with an injection of 1 mL of 0.25% bupivacaine at each site. Procedure was well tolerated. DISPOSITION: 1. The patient was taken out into the discharge recovery area, where he will be discharged home once discharge criteria have been met. 2. Follow up in the [facility] office in 2-4 weeks. I attest to the content of the Intraoperative Record and any orders documented therein. Any exception s are noted below.
== END | disposition home or self-care (01) ==
LOC: X.SURG 12:52
PROVIDERS: ATTEND Physical Medicine & Rehabilitation
DX: M54.5 Low back pain (principal); M12.88 Other specific arthropathies, not elsewhere classified, other specified site

== ENCOUNTER 2023-12-09 12:01 | Observation (INO) ==
--- NOTE | 2023-12-09 12:11 | ED Triage Note ---
Date of Service December 09, 2023 Provider in Triage Author: Juanita Brand History of Present Illness This patient was briefly evaluated while in triage. An abbreviated physical exam was performed. This patient is a 78-year-old Male who presents to the ED for evaluation of PE. Pt. had "pulmonary CT scan" on . Had message on Saturday to come to the ED. Having SOB and dizziness and fatigue. Pulmonary CT scan showed extensive emboli in the lungs. Onset of SOB 6 weeks ago, worse in the past 3 weeks Physical Exam VITALS: Vitals are noted on the nurse's note and reviewed by myself. GENERAL: This is a 78 year old male, in no acute distress, nondiaphoretic, well- developed well-nourished. SKIN: No obvious rashes, edema, erythema HEAD: Normocephalic atraumatic. EYES: Conjunctivae without injection, sclerae without icterus. NECK: No JVD. LUNGS: No retractions or accessory muscle use. MUSCULOSKELETAL: Normal gait. NEURO: Patient was alert and oriented to person place and time. No focal neurological deficits. Initial orders for labs and / or imaging were placed and patient was placed in the waiting area until a bed is available. Please see further documentation for the full ED course. MDM / Impression Impression Impression: Pulmonary embolism, Heart block AV second degree, DVT (deep venous thrombosis) Impression: Pulmonary embolism Qualifiers: Pulmonary embolism type: unspecified Chronicity: acute Acute cor pulmonale presence: unspecified Qualified Code(s): I26.99 - Other pulmonary embolism without acute cor pulmonale DVT (deep venous thrombosis) Qualifiers: DVT location: lower extremity Affected thrombotic vein of extremity: tibial Chronicity: acute Laterality: left Qualified Code(s): I82.442 - Acute embolism and thrombosis of left tibial vein
--- NOTE | 2023-12-09 12:53 | Emergency Department Note ---
Impression & Plan Pulmonary embolism, Heart block AV second degree, DVT (deep venous thrombosis) ED Provider Note NAME: SIMEON BEACH AGE: 78 SEX: M : 1945 ARRIVES VIA: Walk-In INFORMANT: Patient, ED PROVIDER(S): Natan Bullard DO CHIEF COMPLAINT: Shortness of breath HPI: The patient is a 78-year-old male who has a history of heart disease who presented to the emergency department for evaluation of shortness of breath. The patient's been having problems with shortness of breath over the course the last few weeks. He does have a history of irregular heartbeat. He went to see his family doctor and specifically requested a CAT scan of the chest. This was done last week. He was called on Saturday and told to come to the emergency department because he had an abnormal finding but did not get the message until today. The patient denies having any leg swelling currently but did have some swelling in his left leg a few weeks ago. He denies having any chest pain or difficulty with nausea vomiting or diarrhea. He denies having any GI bleeding symptoms. ROS: See above HPI for pertinent positives & negatives. A total of 10 systems reviewed and were otherwise negative. PAST MEDICAL HISTORY: See Below PAST SURGICAL HISTORY: See Below FAMILY HISTORY: See Below SOCIAL HISTORY: See Below HOME MEDICATIONS: See Below ALLERGIES: See Below VITALS: See Below PHYSICAL EXAMINATION: GENERAL: Patient is awake alert in no acute distress patient is resting comfortably and showing no signs of anxiety EYES: The conjunctivae are clear. The pupils are round and reactive. EARS, NOSE, MOUTH AND THROAT: The nose is without any evidence of any deformity. NECK: The neck is nontender and supple. RESPIRATORY: Normal respiratory effort is noted there is no evidence of wheezing rhonchi or rales CARDIOVASCULAR: Regular rate and rhythm noted there no murmurs rubs or gallops normal S1 normal S2. GASTROINTESTINAL: The abdomen is soft. Abdomen is nontender. MUSCULOSKELETAL/EXTREMITIES: There is no evidence of gross deformity full range of motion is noted in the hips and shoulders. SKIN: There is no obvious evidence of any rash. There are no petechiae, pallor or cyanosis noted. NEUROLOGIC: Patient is awake alert and oriented x3 MEDICAL DECISION MAKING: The patient is a 78-year-old male who presented to the emergency department because of shortness of breath. The patient has been having problems with shortness of breath that been ongoing. He was not tachycardic or hypoxic but he became very short of breath with any exertion. The patient's EKG showed no ischemic changes but he did have a heart block which was noted previously. The patient was diagnosed with a PE on outpatient CT. This was last week but the patient does have a DVT in his left leg. I discussed the patient's condition with him. I discussed his condition with the on-call [facility] hospitalist. The patient was started on heparin in the emergency department. Given his history of an intracranial hemorrhage in the past he was not given a bolus. He he is very electively stable. Triage Nursing notes reviewed. Prior medical records reviewed Vital Signs: reviewed and remarkable for bradycardia and elevated blood pressure. Differential diagnosis: Reactive airway disease, pneumonia, pneumothorax, COPD, CHF, infections, cardiac ischemia, pulmonary embolism, musculoskeletal, gastrointestinal, as well as other pathologies. ER treatment provided: See below Diagnostics interpreted by me: ECG: EKG was obtained in the emergency department. My interpretation is second- degree heart block type I at 75 bpm. There were no PVCs noted. LVH was noted by voltage criteria. This was compared to a tracing from February 16, 2020. First-degree AV block was noted on the previous tracing otherwise there is no specific changes noted. Cardiac Monitoring: An order was placed for continuous cardiac monitoring. The monitor shows a rate of 80 bpm with type II heart block. Laboratory studies: As stated above and show below. Imaging studies: See below. Radiographic imaging was reviewed by myself Consultation(s): I discussed this case with Dr. Hoffman who is on-call for the [facility]ist group. ED COURSE: Procedures: none Critical Care: I have personally spent greater than 35 minutes of critical care time in the direct management of this patient. This includes bedside care, interpretation of diagnostic studies, and testing, discussion with consultants, patient, and family members, and other required patient management activities. This 35 minutes is in excess of all separately billable procedures. Past Med/Surg History Problem List DVT (deep venous thrombosis) (Acute) Heart block AV second degree (Acute) Pulmonary embolism (Acute) Shortness of breath Sacroiliitis Myofascial pain Lightheadedness LAI (dyspnea on exertion) Serum calcium elevated Benign positional vertigo Chronic low back pain History of colon polyps Chronic SI joint pain Mobitz type 1 second degree AV block Bradycardia Disorder of SI (sacroiliac) joint Imbalance Sensorineural hearing loss (SNHL) of both ears Lightheadedness Screening for prostate cancer Second degree atrioventricular block Heart block atrioventricular Cerebral vascular accident Hypertension (Chronic) Thrombocytopenia (Acute) Somatic dysfunction of sacroiliac joint (Acute) Pre-diabetes (Acute) Lumbar radiculopathy (Acute) Hypothyroidism (Acute) Hyperlipidemia (Acute) Hearing loss (Acute) Esophageal reflux (Acute) Erectile dysfunction (Acute) Enlarged prostate with lower urinary tract symptoms (LUTS) (Acute) Coronary artery disease (Acute) Arthritis (Acute) History of coronary artery bypass graft (2006) X 2 2007 - GLEN ARM FOLLOW DR KENNY Medical History Encounter for pre-operative examination Neck pain FULL ROM CVA (cerebral vascular accident) HX FALL 2020-AFFECTED LEFT SIDE BODY-RESOLVED History of irregular heartbeat F/U DR ANA KENNY History of diverticulosis Internal hemorrhoids Benign colonic polyp Infectious hepatitis FROM [place] WAS TOLD IT WAS "FROM [place]" Chronic back pain RIGHT SI JOINT PAINFUL Osteoarthritis Kidney stones HX OF AND PASSED ON OWN GERD (gastroesophageal reflux disease) Hypothyroidism Heart disease Hyperlipidemia Migraines Surgical History History of coronary artery bypass [place] [facility] [place] of esophagogastroduodenoscopy (EGD) History of tonsillectomy and adenoidectomy Hx of colonoscopy History of colon resection DIVERTICULAR DISEASE-2003/COLOSTOMY REVERSED 2004 Family History Father Throat cancer Coronary heart disease Myocardial infarction Hypertension Family history of esophageal cancer Uncle Coronary heart disease Grandmother (Maternal) Diabetes Other No family history of adverse response to anesthesia No family history of bleeding disorder Denies family history of Ovarian cancer Prostate cancer Breast cancer Colorectal cancer Social History Smoking Status: Former smoker Tobacco Type: Cigarettes Second Hand Exposure: No; Do You Dip or Chew Tobacco: No; Tobacco Cessation Education Requested by Patient: No Hx Alcohol Use: Yes Alcohol type: beer and wine Hx Substance Use: No Preferred Language: Guyanese Communication Ability: Effective Visual Impairment: No Limitations Hearing Ability: Normal Electrician Third Required: No Beliefs That Will Affect Care: None marital status: Current Living Situation: Spouse current occupational status: retired Other Information That Helps Us Care for You: No Feels Safe at Home: Yes Safety Concerns: Feels Safe At This Time Dental Care, Regularly: Yes Physical Activity Frequency: 5-6 Times per Week Physical Activity Frequency Comment: ellyptical, plays golf Seatbelt Use: always Sunscreen Use: Yes Assistive Devices: Glasses Assistive Devices Comment: partial dentures Allergies Allergies Allergy/AdvReac Type Severity Reaction Status Date / Time shellfish derived AdvReac Unknown NAUSEA AND Verified 12/09/23 14:34 VOMITING Home Meds Home Medications Medication Instructions Recorded Confirmed aspirin 81 mg tablet,delayed 81 mg PO HS 06/29/19 12/09/23 release cholecalciferol (vitamin D3) 50 50 mcg PO QAM 11/15/21 12/09/23 mcg (2,000 unit) capsule (Vitamin D3) [id number] 5 mg-zeaxanth 1 cap PO QPM 11/15/21 12/09/23 1 mg-bilberry 7.5 mg-herbal capsule (Macular Health Formula) calcium carbonate 550 mg-magnesium 2 tab PO Q4H PRN Acid 12/09/23 12/09/23 hydroxide 110 mg chewable tablet Reflux/Indigestion levothyroxine 200 mcg tablet 0 mcg PO DAILY 12/09/23 12/09/23 multivitamin 1 tab PO DAILY 12/09/23 12/09/23 Previous Rx's Medication Instructions Recorded tramadol 50 mg tablet 50 mg PO Q12H PRN MIGRAINES #30 12/07/19 tabs diclofenac sodium 1 % topical gel 2 gm topical BID PRN arthritis 12/31/19 #100 grams sildenafil 100 mg tablet 100 mg PO ONCE PRN sexual activity 12/07/21 #6 tabs nitroglycerin 0.4 mg sublingual 0.4 mg sublingual UD PRN Pain #20 02/02/22 tablet (Nitrostat) tabs tamsulosin 0.4 mg capsule 0.4 mg PO DAILY #90 caps 12/11/22 atorvastatin 40 mg tablet 40 mg PO HS #90 tabs 12/27/22 amlodipine 5 mg tablet 5 mg PO DAILY #90 tabs 08/21/23 Results & Data (ED) Vital Signs Vital Signs - 24 hr 12/09/23 12:09 12/09/23 13:05 Temperature 36.7 C Temperature Source Temporal Artery Scan Pulse Rate 102 H 62 Respiratory Rate 18 Respiratory Effort / Characteristics Non-Labored Respiratory Depth Normal Respiratory Pattern Regular Blood Pressure 150/91 H Blood Pressure Mean 110 Pulse Oximetry 96 Oxygen Delivery Method Room Air Sepsis Recent Fever Within 48 Hours No Sepsis New/Unexplained Change in Mental Status N/A Sepsis Action Taken by Nursing No Action Required Home Medications Current Medication List: was personally reviewed by me Laboratory Data Attestation: I reviewed the patient's lab results. 12/09/23 12:50 12/09/23 12:50 Lab Results 12/09/23 Range/Units 12:50 WBC 5.82 (4.8-10.8) K/ul RBC 5.21 (4.70-6.10) M/uL Hgb 16.9 (14.0-18.0) g/dl Hct 50.2 (42.0-52.0) % MCV 96.4 (80.0-100.0) fL MCH 32.4 (25.0-34.0) pg MCHC 33.7 (32.0-36.0) g/dL RDW Std Deviation 49.7 H (36.4-46.3) fL RDW Coeff of Ambrosio 14.1 (11.5-14.5) % Plt Count 122 L (130-400) K/uL MPV 14.2 H (9.4-12.4) fL Immature Gran % (Auto) 0.3 % Neut % (Auto) 52.3 % Lymph % (Auto) 35.2 % Parmer % (Auto) 8.9 % Eos % (Auto) 2.6 % Baso % (Auto) 0.7 % Neut # (Auto) 3.04 (1.40-6.50) K/uL Lymph # (Auto) 2.05 (1.20-3.40) K/uL Parmer # (Auto) 0.52 (0.11-0.59) K/uL Eos # (Auto) 0.15 (0.00-0.50) K/uL Baso # (Auto) 0.04 (0.00-0.20) K/uL Immature Gran # (Auto) 0.02 (0.01-0.20) K/uL PT 11.0 (9.0-12.0) Seconds INR 1.0 (0.9-1.1) APTT 25 (21-31) Seconds PTT Ratio 0.9 Sodium 138 (136-145) mmol/L Potassium 4.4 (3.5-5.1) mmol/L Chloride 104 (98-107) mmol/L Carbon Dioxide 27 (21-32) mmol/L Anion Gap 7 (3-11) BUN 19 (6-23) mg/dl Creatinine 1.14 (0.6-1.4) mg/dl Est Cr Clr Drug Dosing 63.4 ml/min Est GFR ( Amer) 71.0 ml/min Est GFR (Non-Af Amer) 61.3 ml/min BUN/Creatinine Ratio 16.7 (10-20) Glucose 133 H (70-99(Fasting)) mg/dl Calcium 10.7 H (8.6-10.3) mg/dl Total Bilirubin 1.3 H (0.2-1.0) mg/dl AST 21 (13-39) U/L ALT 42 (7-52) U/L Alkaline Phosphatase 84 (34-104) U/L Troponin I High Sens 6.6 (0-20) pg/ml Total Protein 7.3 (6.0-8.3) gm/dl Albumin 4.5 (3.4-5.0) gm/dl Globulin 2.8 (2.5-4.0) gm/dl Albumin/Globulin Ratio 1.6 (0.9-2) Administered Medications Heparin Sodium/Dextrose (Heparin Sodium/Dextrose) 25,000 units in 500 mls @ 30 mls/hr IV .[id number] [facility]; Protocol Stop: 01/08/24 13:14 Last Titration: 12/09/23 15:36 Dose: 1,500 units/hr, 30 mls/hr Documented By: LND Co-signed By: TMP Admin: 12/09/23 13:56 Dose: 1,500 units/hr, 30 mls/hr Documented By: JOSE Co-signed By: HS Discontinued Medications Heparin Sodium (Porcine) (Heparin Sod (Porcine) 1000 Unit/Ml) Confirm Administered Dose 1,000 units .ROUTE .STK-MED ONE Stop: 12/09/23 13:45 Last Admin: 12/09/23 14:04 Dose: Not Given Documented By: HS Heparin Sodium/Dextrose (Heparin Iv Adult Wt-Based Standard *No* Initial Bolus Protocol) 1 each IV ONE STA; Protocol Stop: 12/09/23 12:47 Last Admin: 12/09/23 14:05 Dose: Not Given Documented By: JOSE Sodium Chloride (Nss) 500 mls @ 999 mls/hr IV .Q31M ONE Stop: 12/09/23 12:41 Last Infusion: 12/09/23 15:42 Dose: Infused Documented By: Admin: 12/09/23 13:08 Dose: 999 mls/hr Documented By: HS Imaging Data Attestation: I personally reviewed and interpreted this imaging study as follows: My Impression: 1 view chest x-ray was obtained in the emergency department. My interpretation is no free air or definite infiltrate, final report below. Radiologist's Impression: Chest X-Ray 12/09/23 12:12 XR chest 2V PA/lateral CLINICAL HISTORY: Shortness of breath. Pulmonary embolus on recent CT. COMPARISON STUDY: Chest radiograph July 17, 2022. Chest CT December 05, 2023. FINDINGS: Status post median sternotomy. There is no pneumothorax. Trace left pleural effusion is present. No airspace opacities are present. Cardiomediastinal silhouette is stable. IMPRESSION: 1. No airspace opacities. 2. Trace left pleural effusion. ACT 112: Negative or not required by law. Electronically signed by: Freddy Tilley M.D. 12/09/2023 2:37 PM Venous Doppler Study 12/09/23 12:46 ULTRASOUND BILATERAL LOWER EXTREMITY VENOUS CLINICAL HISTORY: Pulmonary embolus COMPARISON STUDY: No priors. TECHNIQUE: Real-time, grayscale, and color Doppler sonography of the deep veins of the right and left lower extremity was performed from the inguinal crease to the calf. Compression and augmentation were utilized. FINDINGS: Right lower extremity: There is no sonographic evidence of deep venous thrombosis in the right lower extremity. The common femoral, superficial femoral, and popliteal veins are patent and normally compressible. The greater saphenous vein and the profunda femoris vein at the junction with the common femoral vein are clear. The visualized calf veins are patent. Left lower extremity: There is deep venous thrombosis in the left calf within the posterior tibial veins. The remaining calf vessels are patent. The common femoral, superficial femoral, and popliteal veins are patent and normally compressible. The greater saphenous vein and the profunda femoris vein at the junction with the common femoral vein are clear. IMPRESSION: 1. There is deep venous thrombosis in the left calf within the posterior tibial veins. 2. No additional foci of deep venous thrombosis are seen throughout the right or left lower extremity. ACT 112: Negative or not required by law. Electronically signed by: Henrry Parrish M.D. 12/09/2023 2:47 PM Discharge Plan Visit Data Chief Complaint: Referred by Doctor Stated Complaint: ABN CAT SCAN ED Provider: Natan Bullard Discharge Problem: Pulmonary embolism, Heart block AV second degree, DVT (deep venous thrombosis) Patient Disposition: Admitted As Inpatient Discharge Instructions Interventions: ED Discharge Assessment Last Done: 12/09/23 14:54 Discharge Problem: Pulmonary embolism Qualifiers: Pulmonary embolism type: unspecified Chronicity: acute Acute cor pulmonale presence: unspecified Qualified Code(s): I26.99 - Other pulmonary embolism without acute cor pulmonale DVT (deep venous thrombosis) Qualifiers: DVT location: lower extremity Affected thrombotic vein of extremity: tibial C hronicity: acute Laterality: left Qualified Code(s): I82.442 - Acute embolism and thrombosis of left tibial vein
[2023-12-09] MEDS: SODIUM CHLORIDE 0.9% 500 ML IV ONE (13:08)
[2023-12-09 13:10] LABS: Basophils # (auto) 0.04 K/uL (0.00-0.20); Basophils % (auto) 0.7 %; Eosinophils # (auto) 0.15 K/uL (0.00-0.50); Eosinophils % (auto) 2.6 %; Hematocrit (blood only) 50.2 % (42.0-52.0); Hemoglobin 16.9 g/dl (14.0-18.0); Immature Granulocytes # (auto) 0.02 K/uL (0.01-0.20); Immature Granulocytes % (auto) 0.3 %; Lymphocytes # (auto) 2.05 K/uL (1.20-3.40); Lymphocytes % (auto) 35.2 %; Mean Corpuscular Hemoglobin 32.4 pg (25.0-34.0); Mean Corpuscular Hgb Conc 33.7 g/dL (32.0-36.0); Mean Corpuscular Volume 96.4 fL (80.0-100.0); Mean Platelet Volume 14.2 fL (9.4-12.4); Monocytes # (auto) 0.52 K/uL (0.11-0.59); Monocytes % (auto) 8.9 %; Neutrophils # (auto) 3.04 K/uL (1.40-6.50); Neutrophils % (auto) 52.3 %; Platelet Count 122 K/uL (130-400); RDW Coefficient of Variation 14.1 % (11.5-14.5); RDW Standard Deviation 49.7 fL (36.4-46.3); Red Blood Count 5.21 M/uL (4.70-6.10); White Blood Count 5.82 K/ul (4.8-10.8)
[2023-12-09 13:18] LABS: Partial Thromboplastin Ratio 0.9; Partial Thromboplastin Time 25 Seconds (21-31)
[2023-12-09 13:32] LABS: Albumin Level 4.5 gm/dl (3.4-5.0); Bilirubin,Total 1.3 mg/dl (0.2-1.0); Calcium 10.7 mg/dl (8.6-10.3); Potassium 4.4 mmol/L (3.5-5.1)
[2023-12-09 13:38] LABS: Albumin Globulin Ratio 1.6 (0.9-2); BUN Creatinine Ratio 16.7 (10-20); Creatinine Clr Calc Pharmacy 63.4 ml/min; Est GFR (Non-African American) 61.3 ml/min; Globulin 2.8 gm/dl (2.5-4.0); Total Protein 7.3 gm/dl (6.0-8.3)
--- NOTE | 2023-12-09 13:38 | History & Physical Report ---
Date of Service December 09, 2023 Assessment & Plan (1) Pulmonary embolism: Plan: No definitive provoking event therefore recommend 6 months of treatment Associated Left posterior tibial vein DVT TTE to assess for right heart strain Continue IV heparin, can likely switch to PO anticoagulation tomorrow as long as hemoglobin/hemodynamically stable (2) Heart block AV second degree: Plan: 2nd degree Mobitz type 1 on EKG - this is not new Monitor on telemetry for higher degree heart block (3) Hypothyroidism: Plan: TSH WNL Continue usual levothyroxine dosing (4) Coronary artery disease: Plan: history of CABG ASA, atorvastatin (5) DVT (deep venous thrombosis): Plan VTE Prophylaxis - IV heparin Diet - regular Disposition - observation to med/tele Admission and Anticipated Discharge Date Admission Date: December 09, 2023 History of Present Illness Chief Complaint: Abnormal CT Primary Care Provider: Natan Samuels MD Edison Su is a 78 year old male who presents to the ER after an abnormal CT showing pulmonary emboli. He reports shortness of breath for the last 3 weeks getting slowly progressively worse (he has some shortness of breath on exertion at baseline for years) which was the reason for his CT scan. With hindsight after being told he has a clot in his left calf he reports having a cramp in his left calf at night for the last month. No leg swelling or pain currently. No chest pain, palpitations, syncope. He has chronic lightheadedness for the last few years being workout by his primary care physician; no worse recently. No prior VTE. No family history of VTE. Drove to [place] in August but otherwise no long haul journeys. No recent surgeries. No current smoking. Allergies Allergy/AdvReac Type Severity Reaction Status Date / Time shellfish derived AdvReac Unknown NAUSEA AND Verified 12/09/23 14:34 VOMITING Home Medications Medication Instructions Recorded Confirmed Type aspirin 81 mg tablet,delayed 81 mg PO HS 06/29/19 12/09/23 History release tramadol 50 mg tablet 50 mg PO Q12H PRN MIGRAINES #30 12/07/19 12/09/23 Rx tabs diclofenac sodium 1 % topical gel 2 gm topical BID PRN arthritis 12/31/19 12/09/23 Rx #100 grams cholecalciferol (vitamin D3) 50 50 mcg PO QAM 11/15/21 12/09/23 History mcg (2,000 unit) capsule (Vitamin D3) [id number] 5 mg-zeaxanth 1 cap PO QPM 11/15/21 12/09/23 History 1 mg-bilberry 7.5 mg-herbal capsule (Macular Health Formula) sildenafil 100 mg tablet 100 mg PO ONCE PRN sexual activity 12/07/21 12/09/23 Rx #6 tabs nitroglycerin 0.4 mg sublingual 0.4 mg sublingual UD PRN Pain #20 02/02/22 12/09/23 Rx tablet (Nitrostat) tabs tamsulosin 0.4 mg capsule 0.4 mg PO DAILY #90 caps 12/11/22 12/09/23 Rx atorvastatin 40 mg tablet 40 mg PO HS #90 tabs 12/27/22 12/09/23 Rx amlodipine 5 mg tablet 5 mg PO DAILY #90 tabs 08/21/23 12/09/23 Rx calcium carbonate 550 mg-magnesium 2 tab PO Q4H PRN Acid 12/09/23 12/09/23 History hydroxide 110 mg chewable tablet Reflux/Indigestion levothyroxine 200 mcg tablet 0 mcg PO DAILY 12/09/23 12/09/23 History multivitamin 1 tab PO DAILY 12/09/23 12/09/23 History Past Med/Surg History Problem List DVT (deep venous thrombosis) (Acute) Heart block AV second degree (Acute) Pulmonary embolism (Acute) Shortness of breath Sacroiliitis Myofascial pain Lightheadedness LAI (dyspnea on exertion) Serum calcium elevated Benign positional vertigo Chronic low back pain History of colon polyps Chronic SI joint pain Mobitz type 1 second degree AV block Bradycardia Disorder of SI (sacroiliac) joint Imbalance Sensorineural hearing loss (SNHL) of both ears Lightheadedness Screening for prostate cancer Second degree atrioventricular block Heart block atrioventricular Cerebral vascular accident Hypertension (Chronic) Thrombocytopenia (Acute) Somatic dysfunction of sacroiliac joint (Acute) Pre-diabetes (Acute) Lumbar radiculopathy (Acute) Hypothyroidism (Acute) Hyperlipidemia (Acute) Hearing loss (Acute) Esophageal reflux (Acute) Erectile dysfunction (Acute) Enlarged prostate with lower urinary tract symptoms (LUTS) (Acute) Coronary artery disease (Acute) Arthritis (Acute) History of coronary artery bypass graft (2006) X 2 2007 - [place] FOLLOW DR KENNY Medical History Encounter for pre-operative examination Neck pain FULL ROM CVA (cerebral vascular accident) HX FALL 2019-AFFECTED LEFT SIDE BODY-RESOLVED History of irregular heartbeat F/U DR ANA KENNY History of diverticulosis Internal hemorrhoids Benign colonic polyp Infectious hepatitis FROM [place] WAS TOLD IT WAS "FROM WATER" Chronic back pain RIGHT SI JOINT PAINFUL Osteoarthritis Kidney stones HX OF AND PASSED ON OWN GERD (gastroesophageal reflux disease) Hypothyroidism Heart disease Hyperlipidemia Migraines Surgical History History of coronary artery bypass graft 2 VESSELS 2006 [facility] [place] History of esophagogastroduodenoscopy (EGD) History of tonsillectomy and adenoidectomy Hx of colonoscopy History of colon resection DIVERTICULAR DISEASE-2003/COLOSTOMY REVERSED 2004 Family History Father Throat cancer Coronary heart disease Myocardial infarction Hypertension Family history of esophageal cancer Uncle Coronary heart disease Grandmother (Maternal) Diabetes Other No family history of adverse response to anesthesia No family history of bleeding disorder Denies family history of Ovarian cancer Prostate cancer Breast cancer Colorectal cancer Social History Smoking Status: Former smoker Tobacco Type: Cigarettes Second Hand Exposure: No; Do You Dip or Chew Tobacco: No; Tobacco Cessation Education Requested by Patient: No Hx Alcohol Use: Yes Alcohol type: beer and wine Hx Substance Use: No Preferred Language: Turkmen Communication Ability: Effective Visual Impairment: No Limitations Hearing Ability: Normal Fiscal Services Director Required: No Beliefs That Will Affect Care: None marital status: Current Living Situation: Spouse current occupational status: retired Other Information That Helps Us Care for You: No Feels Safe at Home: Yes Safety Concerns: Feels Safe At This Time Dental Care, Regularly: Yes Physical Activity Frequency: 5-6 Times per Week Physical Activity Frequency Comment: vinay, plays golf Seatbelt Use: always Sunscreen Use: Yes Assistive Devices: Glasses Assistive Devices Comment: partial dentures Review of Systems Review of Systems: All systems reviewed & are unremarkable except as noted in HPI & below Physical Exam Constitutional: WD/WN, vitals as above ENMT: external ear and nose normal, oropharynx normal Respiratory: normal respiratory effort, lungs clear to auscultation Cardiovascular: RRR, no murmur, no edema Extremities: no calf tenderness Gastrointestinal (Abdomen): normal bowel sounds, soft, nontender, no hepatosplenomegaly Musculoskeletal: no cyanosis or clubbing, extremities motor strength 5/5 Skin: no rashes, warm and dry Neurologic: moves all extremities and awake; not confused Psychiatric: A+Ox3, euthymic affect Results & Data Results & Data Vital Signs (Past 12 Hours) Vital Signs Temp Pulse Resp BP Pulse Ox O2 Del Method 12/09/23 13:05 62 12/09/23 12:09 36.7 C 102 H 18 150/91 H 96 Room Air Laboratory Results Abnormal lab results 12/09/23 Range/Units 12:50 RDW Std Deviation 49.7 H (36.4-46.3) fL Plt Count 122 L (130-400) K/uL MPV 14.2 H (9.4-12.4) fL Glucose 133 H (70-99(Fasting)) mg/dl Calcium 10.7 H (8.6-10.3) mg/dl Total Bilirubin 1.3 H (0.2-1.0) mg/dl Diagnostic Findings XR chest 2V PA/lateral CLINICAL HISTORY: Shortness of breath. Pulmonary embolus on recent CT. COMPARISON STUDY: Chest radiograph July 17, 2022. Chest CT December 05, 2023. FINDINGS: Status post median sternotomy. There is no pneumothorax. Trace left pleural effusion is present. No airspace opacities are present. Cardiomediastinal silhouette is stable. IMPRESSION: 1. No airspace opacities. 2. Trace left pleural effusion. ULTRASOUND BILATERAL LOWER EXTREMITY VENOUS CLINICAL HISTORY: Pulmonary embolus COMPARISON STUDY: No priors. TECHNIQUE: Real-time, grayscale, and color Doppler sonography of the deep veins of the right and left lower extremity was performed from the inguinal crease to the calf. Compression and augmentation were utilized. FINDINGS: Right lower extremity: There is no sonographic evidence of deep venous thrombosis in the right lower extremity. The common femoral, superficial femoral, and popliteal veins are patent and normally compressible. The greater saphenous vein and the profunda femoris vein at the junction with the common femoral vein are clear. The visualized calf veins are patent. Left lower extremity: There is deep venous thrombosis in the left calf within the posterior tibial veins. The remaining calf vessels are patent. The common femoral, superficial femoral, and popliteal veins are patent and normally compressible. The greater saphenous vein and the profunda femoris vein at the junction with the common femoral vein are clear. IMPRESSION: 1. There is deep venous thrombosis in the left calf within the posterior tibial veins. 2. No additional foci of deep venous thrombosis are seen throughout the right or left lower extremity. Medications Administered ER Medications Given: Heparin standard IV drip no bolus ECG Rate (beats per minute): 75 Rhythm: normal sinus Findings: + other (2nd degree Mobtiz 1) Comparison ECG Date: from (February 16, 2020) Change: the following changes noted (2nd degree HB is new) Code Status & VTE Plan Code Status Full VTE Prophylaxis Plan VTE Prophylaxis will be ordered: Yes PG Care Time/CCT Total # of Minutes Spent Total Time Spent with Patient: Total time spent is greater than 50% in coordination of care (as documented) at patient's floor/unit and/or counseling patient: Coding Level of Care Code 90398 INT INP/OBS CARE 2/55MIN Diagnoses Pulmonary embolism I26.99 Acute cor pulmonale presence: unspecified Chronicity: acute Pulmonary embolism type: unspecified Heart block AV second degree I44.1 Hypothyroidism E03.9 Coronary artery disease I25.10 DVT (deep venous thrombosis) I82.442 Affected thrombotic vein of extremity: tibial Chronicity: acute DVT location: lower extremity Laterality: left (1) Pulmonary embolism Acute cor pulmonale presence: unspecified Chronicity: acute Pulmonary embolism type: unspecified Qualified Code(s): I26.99 - Other pulmonary embolism without acute cor pulmonale (5) DVT (deep venous thrombosis) Affected thrombotic vein of extremity: tibial Chronicity: acute DVT location: lower extremity Laterality: left Qualified Code(s): I82.442 - Acute embolism and thrombosis of left tibial vein
[2023-12-09 13:39] LABS: Troponin I High Sensitivity 6.6 pg/ml (0-20)
[2023-12-09] MEDS: HEPARIN SODIUM/DEXTROSE 25,000 UNITS/500 ML BAG IV SCH (13:56)
[2023-12-09] MEDS: HEPARIN SOD (PORCINE) 1000 UNIT/ML ONE (14:04)
[2023-12-09] MEDS: Heparin IV Adult Wt-Based Standard *NO* INITIAL Bolus Protocol IV STA (14:05)
--- NOTE | 2023-12-09 14:39 | XRay Report ---
XR chest 2V PA/lateral CLINICAL HISTORY: Shortness of breath. Pulmonary embolus on recent CT. COMPARISON STUDY: Chest radiograph July 17, 2022. Chest CT December 05, 2023. FINDINGS: Status post median sternotomy. There is no pneumothorax. Trace left pleural effusion is pre sent. No airspace opacities are present. Cardiomediastinal silhouette is stable. IMPRESSION: 1. No airspace opacities. 2. Trace left pleural effusion. ACT 112: Negative or not required by law. Electronically signed by: Freddy Tilley M.D. 12/09/2023 2:37 PM
--- NOTE | 2023-12-09 14:49 | Ultrasound Report ---
ULTRASOUND BILATERAL LOWER EXTREMITY VENOUS CLINICAL HISTORY: Pulmonary embolus COMPARISON STUDY: No priors. TECHNIQUE: Real-time, grayscale, and color Doppler sonography of the deep veins of the right and left lower extremity was performed from the inguinal crease to the calf. Compression and augmentation wer e utilized. FINDINGS: Right lower extremity: There is no sonographic evidence of deep venous thrombosis in the right lower extremity. The common femoral, superficial femoral, and popliteal veins are patent and normally compr essible. The greater saphenous vein and the profunda femoris vein at the junction with the common fem oral vein are clear. The visualized calf veins are patent. Left lower extremity: There is deep venous thrombosis in the left calf within the posterior tibial ve ins. The remaining calf vessels are patent. The common femoral, superficial femoral, and popliteal ve ins are patent and normally compressible. The greater saphenous vein and the profunda femoris vein at the junction with the common femoral vein are clear. IMPRESSION: 1. There is deep venous thrombosis in the left calf within the posterior tibial veins. 2. No additional foci of deep venous thrombosis are seen throughout the right or left lower extremity . ACT 112: Negative or not required by law. Electronically signed by: Henrry Parrish M.D. 12/09/2023 2:47 PM
--- NOTE | 2023-12-09 15:09 | Electrocardiogram Report ---
Test Reason : Blood Pressure : / mmHG Vent. Rate : 075 BPM Atrial Rate : 096 BPM P-R Int : 000 ms QRS Dur : 090 ms QT Int : 400 ms P-R-T Axes : 068 005 012 degrees QTc Int : 446 ms Sinus rhythm with 2nd degree A-V block (Mobitz I) Possible Anterior infarct , age undetermined Abnormal ECG When compared with ECG of 16-FEB-2020 18:39, Sinus rhythm is now with 2nd degree A-V block (Mobitz I) Criteria for Inferior infarct are no longer Present Confirmed by Natan Raymundo ([id number]) on 12/09/2023 3:09:17 PM Referred By: REFERRED SELF Confirmed By:Natan Raymundo
[2023-12-09] MEDS ORDERED: traMADol HCL 50 MG TABLET PO PRN (20:48)
[2023-12-09 21:08] LABS: ANTI-Xa, UFH(UnfractionatedHep 0.53 IU/ml (0.3-0.7)
[2023-12-09] MEDS: ATORVASTATIN 40 MG TAB PO SCH (22:00)
[2023-12-09] MEDS: ASPIRIN 81 MG ECTAB PO SCH (22:00)
[2023-12-10 06:18] LABS: Basophils # (auto) 0.04 K/uL (0.00-0.20); Basophils % (auto) 0.6 %; Eosinophils # (auto) 0.21 K/uL (0.00-0.50); Eosinophils % (auto) 3.3 %; Hematocrit (blood only) 44.2 % (42.0-52.0); Hemoglobin 15.3 g/dl (14.0-18.0); Immature Granulocytes # (auto) 0.02 K/uL (0.01-0.20); Immature Granulocytes % (auto) 0.3 %; Lymphocytes # (auto) 3.04 K/uL (1.20-3.40); Lymphocytes % (auto) 47.7 %; Mean Corpuscular Hemoglobin 33.2 pg (25.0-34.0); Mean Corpuscular Hgb Conc 34.6 g/dL (32.0-36.0); Mean Corpuscular Volume 95.9 fL (80.0-100.0); Monocytes # (auto) 0.52 K/uL (0.11-0.59); Monocytes % (auto) 8.2 %; Neutrophils # (auto) 2.54 K/uL (1.40-6.50); Neutrophils % (auto) 39.9 %; Platelet Count 119 K/uL (130-400); RDW Coefficient of Variation 14.2 % (11.5-14.5); RDW Standard Deviation 49.3 fL (36.4-46.3); Red Blood Count 4.61 M/uL (4.70-6.10); White Blood Count 6.37 K/ul (4.8-10.8)
[2023-12-10] MEDS: LEVOTHYROXINE SODIUM 200 MCG TABLET PO SCH (06:26)
[2023-12-10 06:32] LABS: BUN Creatinine Ratio 18.1 (10-20); Calcium 9.2 mg/dl (8.6-10.3); Est GFR (African American) 89.6 ml/min; Est GFR (Non-African American) 77.3 ml/min; Potassium 4.3 mmol/L (3.5-5.1)
[2023-12-10 06:44] LABS: ANTI-Xa, UFH(UnfractionatedHep 0.72 IU/ml (0.3-0.7)
[2023-12-10] MEDS: CHOLECALCIFEROL 25 MCG (1000 UNITS) TAB PO SCH (08:06)
[2023-12-10] MEDS: MULTIVITAMIN TAB PO SCH (08:06)
[2023-12-10] MEDS: amLODIPine BESYLATE 5 MG TAB PO SCH (08:07)
[2023-12-10] MEDS: TAMSULOSIN HCL 0.4 MG CAP PO SCH (08:07)
--- NOTE | 2023-12-10 09:20 | Hospitalist Progress Note ---
Date of Service December 10, 2023 Assessment & Plan (1) Pulmonary embolism: Plan: No definitive provoking event therefore recommend 6 months of treatment Associated Left posterior tibial vein DVT - compression stocking and elevation for swelling Echo: wihtout right heart strain, EF 55-60% Heparin IV switched to PO eliquis this AM IS (2) Heart block AV second degree: Plan: 2nd degree Mobitz type 1 on EKG - this is not new - patient asymptomatic Monitor on telemetry for higher degree heart block (3) Hypothyroidism: Plan: TSH WNL Continue usual levothyroxine dosing (4) Coronary artery disease: Plan: history of CABG ASA, atorvastatin - will continue ASA with Eliquis (5) DVT (deep venous thrombosis): Plan VTE Prophylaxis - IV heparin switched to Eliquis Disposition - monitor hemodynamics with switch to Eliquis, hopeful for discharge 12/10 Admission and Anticipated Discharge Date Admission Date: December 09, 2023 Supervising Physician Co-Signing Physician Notes Attending Attestation: Chart reviewed, care plan d/w KALANI Higuera. I agree w/ the waller components of her documentation. Aubrey Louis MD Subjective Patient seen sitting in bed. Feeling well, just finished breakfast. Feels like his chronic dizziness may be slightly improved. No cough. shortness of breath with activity but no worse than baseline denies pain in left leg Tele - Naomi 1/ SR 50s Review of Systems Review of Systems: All systems reviewed & are unremarkable except as noted in Subjective Physical Exam Physical Exam: General: NAD, VS as above Resp: normal respiratory effort, lungs diminished in bases CV: RRR, no murmur, Abd: normal bowel sounds, non tender, no hepatosplenomegaly Extremities: Moves all extremities, mild calf/LE swelling to left leg, no redness or warmth Neuro: A&O x3, Skin: intact, no lesions noted Results & Data Results & Data Vital Signs (Past 12 Hours) Vital Signs Temp Pulse Pulse Resp BP Pulse Ox O2 Del Method 12/10/23 07:20 Room Air 12/10/23 07:08 53 L 12/10/23 02:30 36.5 C 60 16 124/80 94 Room Air 12/09/23 22:33 36.7 C 55 L 18 147/68 H 94 Room Air 12/09/23 22:23 69 Laboratory Results CBc, chemistry, PT/INR reviewed Diagnostic Findings chest CT reviewed PG Care Time/CCT Total # of Minutes Spent Total Time Spent with Patient: Total time spent is greater than 50% in coordination of care (as documented) at patient's floor/unit and/or counseling patient: Coding Level of Care Code 66581 SUB INP/OBS CARE 3/50MIN Diagnoses Pulmonary embolism I26.99 Acute cor pulmonale presence: unspecified Chronicity: acute Pulmonary embolism type: unspecified Heart block AV second degree I44.1 Hypothyroidism E03.9 Coronary artery disease I25.10 DVT (deep venous thrombosis) I82.442 Affected thrombotic vein of extremity: tibial Chronicity: acute DVT location: lower extremity Laterality: left (1) Pulmonary embolism Acute cor pulmonale presence: unspecified Chronicity: acute Pulmonary embolism type: unspecified Qualified Code(s): I26.99 - Other pulmonary embolism without acute cor pulmonale (5) DVT (deep venous thrombosis) Affected thrombotic vein of extremity: tibial Chronicity: acute DVT location: lower extremity Laterality: left Qualified Code(s): I82.442 - Acute embolism and thrombosis of left tibial vein
[2023-12-10] MEDS: APIXABAN 5 MG TABLET PO SCH (10:05)
--- NOTE | 2023-12-10 10:53 | Electrocardiogram Report ---
Test Reason : Blood Pressure : / mmHG Vent. Rate : 047 BPM Atrial Rate : 047 BPM P-R Int : 234 ms QRS Dur : 084 ms QT Int : 454 ms P-R-T Axes : 069 -23 002 degrees QTc Int : 401 ms Sinus bradycardia with 1st degree A-V block with occasional Premature atrial complexes Possible Anterior infarct (cited on or before 09-DEC-2023) Abnormal ECG When compared with ECG of 09-DEC-2023 12:43, Sinus rhythm is no longer with 2nd degree A-V block (Mobitz I) Vent. rate has decreased BY 28 BPM Nonspecific T wave abnormality now evident in Anterior leads Confirmed by Natan Raymundo ([id number]) on 12/10/2023 10:53:46 AM Referred By: Aubrey Hoffman Confirmed By:Natan Raymundo
--- NOTE | 2023-12-10 11:18 | Electrocardiogram Report ---
Test Reason : Blood Pressure : / mmHG Vent. Rate : 042 BPM Atrial Rate : 063 BPM P-R Int : 000 ms QRS Dur : 088 ms QT Int : 472 ms P-R-T Axes : 118 195 160 degrees QTc Int : 394 ms Suspect arm lead reversal, interpretation assumes no reversal Sinus rhythm with 2nd degree A-V block (Mobitz I) Lateral infarct (cited on or before 09-DEC-2023) Abnormal ECG When compared with ECG of 09-DEC-2023 13:58, (unconfirmed) Sinus rhythm is now with 2nd degree A-V block (Mobitz I) QRS axis Shifted left Inferior infarct is now Present Questionable change in initial forces of Anterolateral leads Confirmed by Natan Raymundo ([id number]) on 12/10/2023 11:17:48 AM Referred By: Aubrey Hoffman Confirmed By:Natan Raymundo
--- NOTE | 2023-12-11 09:47 | Discharge Summary ---
Discharge Summary Date of Service December 11, 2023 Principal Dx & Hospital Course #1 = Principal Diagnosis (1) Pulmonary embolism: No definitive provoking event therefore recommend 6+ months of treatment - defer decision to PCP Associated Left posterior tibial vein DVT - compression stocking and elevation for swelling Echo: without right heart strain, EF 55-60% Transitioned to PO Eliquis - 7 day loading dose IS hematology referral outpatient for chronically low platelets and unprovoked clot. (2) Heart block AV second degree: 2nd degree Mobitz type 1 on EKG - this is not new - patient asymptomatic No higher block seen on Tele (3) Hypothyroidism: TSH WNL Continue usual levothyroxine dosing (4) Coronary artery disease: history of CABG ASA, atorvastatin - will continue ASA with Eliquis (5) DVT (deep venous thrombosis): (6) Thrombocytopenia: Plan Dispo: discharge to home today Notes For Next Care Provider Outpatient CT showing PE, from his Left leg DVT. Appears to be unprovoked. Transitioned to Eliquis - gave him the 30day coupon card, information for [employer] - his prescription goes towards his deductible. Compression stocking for left leg. continue IS outpatient referral to hematology Medication Changes From Visit Eliquis BID Admission HPI Per Admitting Provider Edison Su is a 78 year old male who presents to the ER after an abnormal CT showing pulmonary emboli. He reports shortness of breath for the last 3 weeks getting slowly progressively worse (he has some shortness of breath on exertion at baseline for years) which was the reason for his CT scan. With hindsight after being told he has a clot in his left calf he reports having a cramp in his left calf at night for the last month. No leg swelling or pain currently. No chest pain, palpitations, syncope. He has chronic lightheadedness for the last few years being workout by his primary care physician; no worse recently. No prior VTE. No family history of VTE. Drove to [place] in August but otherwise no long haul journeys. No recent surgeries. No current smoking. Discharge Exam General: NAD, VS as above Resp: normal respiratory effort, lungs diminished in bases CV: RRR, no murmur, Abd: normal bowel sounds, non tender, no hepatosplenomegaly Extremities: Moves all extremities, mild calf/LE swelling to left leg, maria a hose in place. Neuro: A&O x3, Skin: intact, no lesions noted Updated Medication List Medication Instructions Recorded Confirmed Type aspirin 81 mg tablet,delayed 81 mg PO HS 06/29/19 12/12/23 History release tramadol 50 mg tablet 50 mg PO Q12H PRN MIGRAINES #30 12/07/19 12/12/23 Rx tabs diclofenac sodium 1 % topical gel 2 gm topical BID PRN arthritis 12/31/19 12/12/23 Rx #100 grams cholecalciferol (vitamin D3) 50 50 mcg PO QAM 11/15/21 12/12/23 History mcg (2,000 unit) capsule (Vitamin D3) [id number]-[id number] 5 mg-zeaxanth 1 cap PO QPM 11/15/21 12/12/23 History 1 mg-bilberry 7.5 mg-herbal capsule (Macular Health Formula) sildenafil 100 mg tablet 100 mg PO ONCE PRN sexual activity 12/07/21 12/12/23 Rx #6 tabs nitroglycerin 0.4 mg sublingual 0.4 mg sublingual UD PRN Pain #20 02/02/22 12/12/23 Rx tablet (Nitrostat) tabs tamsulosin 0.4 mg capsule 0.4 mg PO DAILY #90 caps 12/11/22 12/12/23 Rx atorvastatin 40 mg tablet 40 mg PO HS #90 tabs 12/27/22 12/12/23 Rx amlodipine 5 mg tablet 5 mg PO DAILY #90 tabs 08/21/23 12/12/23 Rx calcium carbonate 550 mg-magnesium 2 tab PO Q4H PRN Acid 12/09/23 12/12/23 History hydroxide 110 mg chewable tablet Reflux/Indigestion multivitamin 1 tab PO DAILY 12/09/23 12/12/23 History apixaban 5 mg tablet (Eliquis) 5 mg PO BID 30 days #71 tabs 12/10/23 12/12/23 Rx levothyroxine 175 mcg capsule 175 mcg PO DAILY 12/12/23 12/12/23 History Hospital Stay Data Consultations 12/09/23 12:59 ED Decision to Admit Stat Diagnostic Imagining Performed Chest X-Ray 12/09/23 12:12 XR chest 2V PA/lateral CLINICAL HISTORY: Shortness of breath. Pulmonary embolus on recent CT. COMPARISON STUDY: Chest radiograph July 17, 2022. Chest CT December 05, 2023. FINDINGS: Status post median sternotomy. There is no pneumothorax. Trace left pleural effusion is present. No airspace opacities are present. Cardiomedia stinal silhouette is stable. IMPRESSION: 1. No airspace opacities. 2. Trace left pleural effusion. ACT 112: Negative or not required by law. Electronically signed by: Freddy Tilley M.D. 12/09/2023 2:37 PM Venous Doppler Study 12/09/23 12:46 ULTRASOUND BILATERAL LOWER EXTREMITY VENOUS CLINICAL HISTORY: Pulmonary embolus COMPARISON STUDY: No priors. TECHNIQUE: Real-time, grayscale, and color Doppler sonography of the deep veins of the right and left lower extremity was performed from the inguinal crease to the calf. Compression and augmentation were utilized. FINDINGS: Right lower extremity: There is no sonographic evidence of deep venous thrombosis in the right lower extremity. The common femoral, superficial femoral, and popliteal veins are patent and normally compressible. The greater saphenous vein and the profunda femoris vein at the junction with the common femoral vein are clear. The visualized calf veins are patent. Left lower extremity: There is deep venous thrombosis in the left calf within the posterior tibial veins. The remaining calf vessels are patent. The common femoral, superficial femoral, and popliteal veins are patent and normally compressible. The greater saphenous vein and the profunda femoris vein at the junction with the common femoral vein are clear. IMPRESSION: 1. There is deep venous thrombosis in the left calf within the posterior tibial veins. 2. No additional foci of deep venous thrombosis are seen throughout the right or left lower extremity. ACT 112: Negative or not required by law. Electronically signed by: Henrry Parrish M.D. 12/09/2023 2:47 PM Pending Results Patient Have Any Pending Studies at Discharge: No Discharge Instructions Given to Patient (Per Discharging Provider) Mr. Su, You were hospitalized after your outpatient CT scan showed that you have a Pulmonary embolism (blood clot in your lungs). This is treated with anticoagulation, you were started on a heparin drip and then converted to Eliquis. You will continue Eliquis twice a day. The first 7 days (12/09-12/15) you will take 2 tablets (10mg) twice a day then starting on 12/16 you will take one tablet twice a day. The prescription at the pharmacy reflects this. You should continue to use the incentive spirometer at home while you continue to recover. It was found that the blood clot in your lungs came from a blood clot in your left leg. To help with left leg swelling recommend compression and elevation. You can use a heating pad if this becomes painful. ' You should continue on the baby aspirin given your heart history. I recommend that you take the Eliquis for at least 6 months, but that will be an ongoing to discussion with your PCP if it should be life long. I have also placed a referral for hematology to rediscuss your low platelets in the setting of this clot. Medications: Your medication list has been reviewed and reconciled upon discharge to ensure accuracy and continuity of care. An updated list of all your medications is included with your hospital discharge paperwork. Please review this list closely, and make note of any changes. Take your medications as instructed; do not skip a dose of your medicines. Make sure all of your doctors know every medicine you are taking (including yjyf-obe-jrvwrhf medicines, vitamins, and supplements). Call your primary care provider before taking any new medicines (including over- the-counter medicines, vitamins, and supplements), because some of these may interact with your current medications, or may make your symptoms worse. Tell your primary care provider if you cannot afford your medications. Activity: You can do normal everyday activities as your body allows. Take rest breaks if you feel tired. Do not overexert. Stop activity if you have pain, shortness of breath or feel dizzy. Follow-up appointments: Make an appointment with your primary care physician within one week of discharge. A copy of this summary will be sent to them. Every time you see your primary care physician, or any other doctor, bring your medication list, and a list of questions. CONTACT YOUR PRIMARY CARE PROVIDER if you experience any of the following: Shortness of breath or difficulty breathing Fevers or chills Feeling tired with normal activity or experiencing dizziness or fainting Difficulty following your treatment plan, or difficulty taking medications CALL 911 OR GO TO THE EMERGENCY DEPARTMENT if you experience any of the following: Severe abdominal pain or nausea/vomiting Severe chest pain, or chest pain that radiates (moves) to your jaw or arm Sudden, severe shortness of breath or difficulty breathing Thank you for allowing us to participate in your care. Lyn Higuera PA-C Here are some guidelines about taking Eliquis: Increased risk of blood clots if you stop taking Eliquis. Do not stop taking Eliquis without talking to your doctor.. Stopping Eliquis increases your risk of having a stroke. Increased risk of bleeding. Eliquis can cause bleeding which can be serious and may lead to . This is because Eliquis is a blood thinner medicine (anticoagulant) that lowers blood clotting. During treatment with Eliquis you are likely to bruise more easily, and it may take longer for bleeding to stop. * If you ever cannot get bleeding to stop please report to the ER * If you have a bruise that is large/painful or swollen you should also be seen by a medical provider Call your doctor or get medical help right away if you or your child develop any of these signs or symptoms of bleeding: unexpected bleeding or bleeding that lasts a long time, such as: * nose bleeds that happen often * unusual bleeding from the gums * bleeding that is severe or you cannot control * red, pink or brown urine * bright red or black stools (looks like tar) * cough up blood or blood clots * vomit blood or your vomit looks like coffee grounds If you have a fall and hit your head, please come to the ER and get checked out. Being on a blood thinner increases your risk of brain bleeding with falls. Avoid high risk activities, such as: * standing on tall ladders * riding motorcycles * anything where you are high risk for falls or trauma Avoid taking NSAIDs (pain medication) while you are taking a blood thinner. This includes: * Ibuprofen, Aleve Advil, Naproxen. * If you are ever unsure you can ask your doctor or pharmacist. * Tylenol is SAFE to take. If you have any new or worsening chest pain or shortness of breath please return to the ER. Total Time Total Time Spent Total Time Spent (In Minutes): Time spend day of discharge 32 minutes including direct patient care, medication reconciliation, documentation, review of labs and images, and coordination of care. Supervising Physician Co-Signing Physician Notes Attending Attestation and Discharge Note: Pt seen/examined, chart reviewed, discharge care plan d/w KALANI Higuera. 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 78yo male presented with several weeks of dyspnea on exertion. Outpatient CTA chest on 12/05/23 showed multiple PEs. There was a delay in getting him the results of his scan (patient wasn't receiving his voicemails??) hence the fact that he was admitted on 12/09/23. Dopplers of legs revealed a calf DVT in the left leg. Pt was hemodynamically stable while hospitalized with normal O2 sats. Never required oxygen. He was treated with heparin IV then transitioned to PO Eliquis. 2nd degree Mobitz 1 AV block - CHRONIC, OLD; no higher block seen on tele while here. No symptoms from this. Can continue to monitor routinely. Discharge exam - gen - NAD, pleasant neck - no JVD heart - RRR, s1 s2, no murmur lungs - CTA b/l abd - soft NT ND BS+ ext - no edema, pulses 2+ b/l Will refer back to heme/onc due to persistent thrombocytopenia and now the use of anticoagulation for DVT/PE. Aubrey Louis MD Coding Level of Care Code 99996 INP/OBS DISCH >30 MIN Diagnoses Pulmonary embolism I26.99 Acute cor pulmonale presence: unspecified Chronicity: acute Pulmonary embolism type: unspecified Heart block AV second degree I44.1 Hypothyroidism E03.9 Coronary artery disease I25.10 DVT (deep venous thrombosis) I82.442 Affected thrombotic vein of extremity: tibial Chronicity: acute DVT location: lower extremity Laterality: left Thrombocytopenia D69.6
== END 2023-12-11 13:08 | disposition home or self-care (01) ==
LOC: ED 12:01 → 2N 12:01 → SUATTDRO 13:36 → 2N 14:54
DX: Z79.899 Other long term (current) drug therapy; I26.99 Other pulmonary embolism without acute cor pulmonale; I44.1 Atrioventricular block, second degree; Z91.013 Allergy to seafood; E03.9 Hypothyroidism, unspecified; Z79.82 Long term (current) use of aspirin; I82.442 Acute embolism and thrombosis of left tibial vein; Z87.891 Personal history of nicotine dependence; I25.10 Atherosclerotic heart disease of native coronary artery without angina pectoris; Z79.890 Hormone replacement therapy